=== PATIENT | female | born 1945 | race Caucasian/White ===

== ENCOUNTER 2017-05-11 10:15 | Inpatient (IN) | payer MEDICARE ==
[2018-04-26] MEDS ORDERED: Tranexamic Acid 1,000 MG in NS 0.9% 50 ML* (outpatient use) IV SCH ×2
--- OUTSIDE RECORDS SUMMARY | 2018-04-26 05:46 | XMS REPORT | Continuity of Care Document ---
:1945 External Reference #:[id number] Author Name Teresa Solis Care Team Providers Name Role Phone Pepe Rodríguez D.O. Primary Care Physician Unavailable Payers Date Identification Numbers Payment Provider Subscriber Expires: 2017 Policy Number: [id number] [employer] (O) Ana Cordova Michael PayID: [id number] [address] [address] [place] [address] Policy Number: [id number] Medicare Ana Cordova Michael PayID: [id number] [address] [place] [address] Policy Number: [id number] [facility] Ana Cordova Michael PayID: [id number] [address] [place] [address] Advance Directives Description No Information Available Problems Date Description Provider Status Onset: 12/18/2016 Iliotibial band friction syndrome Johnie Merchant M.D. Active Onset: 12/18/2016 Localized, primary osteoarthritis Johnie Merchatn M.D. Active Onset: 12/18/2016 Shoulder joint pain Johnie Merchant M.D. Active Onset: 04/21/2017 Disorder of shoulder Johnie Merchant M.D. Active Onset: 07/06/2017 Closed fracture of carpal bone Chasidy García M.D. Active Onset: 07/06/2017 Hypoxemia Chasidy García M.D. Active Onset: 07/06/2017 Dyspnea Chasidy García M.D. Active Onset: 07/06/2017 Chronic obstructive lung disease Chasidy García M.D. Active Onset: 11/12/2017 Nondisplaced longitudinal fracture of Johnie Merchant M.D. Active left patella, subsequent encounter for closed fracture with routine healing Onset: 11/12/2017 Closed fracture proximal humerus, three Johnie Merchant M.D. Active part Family History Date Family Member(s) Observation Comments General Diabetes General Cancer Father due to Natural Causes () Mother due to Natural Causes () Siblings 4 Social History Type Date Description Comments Sex Unknown Marital Status Lives With Sister Occupation Retired Tobacco Use Start: Unknown Heavy tobacco smoker (more than 10 cigarettes/day) ETOH Use Drinks 3 Alcoholic Beverages Per Day Recreational Drug Use Denies Drug Use Tobacco Use Start: Unknown Patient is a current smoker, smokes every day Smoking Status Reviewed: 04/20/18 Patient is a current smoker, smokes every day Exercise Type/Frequency Exercises rarely Allergies, Adverse Reactions, Alerts Date Description Reaction Status Severity Comments 12/18/2016 Vicodin Active 10/26/2017 Tape Active Medications Medication Date Status Form Strength Qnty SIG Indications Ordering Provider Vitamin D3 10/05/ Active Capsules 5000Unit 30caps 1 by mouth S52.551D Pepe Embanet 2017 every day x 3 F Strength months MD Gladis Clonazepam / Active Tablets 0.5mg 1 daily Unknown 0000 Zolpidem / Active Tablets 5mg take 1 tablet Unknown Tartrate 0000 by mouth at bedtime Aleve / Active Capsules 220mg 1-2 by mouth Unknown 0000 twice a day as needed (average 4/day) Stiolto / Active Aerosol 2.5-2.5mcg 1 puff daily Unknown Respimat 0000 /Act Potassium / Active Tablets 550(90K) 1 by mouth Unknown Gluconate 0000 mg twice a day Calcium 500 / Active Tablets 500-600mg- 1 by mouth Unknown + D3 0000 Unit twice every day Tums / Active Chewtabs 500mg as needed Unknown 0000 Fentanyl / Active Patches 25mcg/HR apply one Unknown 0000 72HR patch once every 3 days Prevacid / Active Capsules 30mg take [address] at bedtime Ventolin HFA / Active Aerosol 108(90Base Inhale 2 Unknown 0000 ) mcg/Act Puffs By Mouth Every 6 Hours as Needed Amoxicillin/ 07/08/ Hx Tablets 875-125mg 14tabs 1 tab every Pepe Clavulanate 2017 hours for F Potassium 09/01/ 7 days Gladis2017 Oxycodone 05/30/ Hx Tablets 5mg 30tabs 1 tab every 6 Pepe HCL 2018 - hours as F 11/09/ needed for 2017 pain Colace 05/30/ Hx Capsules 100mg 90caps 1 tab every Pepe 2018 - 12 hours as F 04/19/ needed for 2018 constipation Percocet 05/25/ Hx Tablets 5-325mg 30tabs 1 tab by Pepe 2017 - mouth every 6 F 24/ hours as 2017 needed for pain. Keflex 05/25/ Hx Capsules 500mg 21caps take 1 tab by Pepe 2017 - mouth 3 times F 11/16/ day x 7 2017 days until MD finished. Aspirin Ec 05/25/ Hx Tablets DR 325mg 30tabs take 1 tab by Pepe 2017 - mouth every F 11/16/ day x 14 2017 days. with food. Tramadol HCL 06/29/ Hx Tablets 50mg 14tabs 1 tablet Pepe 2017 - every 6 hours F 11/09/ as needed 2017 Prevacid 00/00/ Hx Capsules 30mg 1 by mouth Unknown 0000 - DR every day 2017 Flexeril 00/00/ Hx 1 po every 8 Unknown 0000 - hours prn 2017 Dexilant 00/00/ Hx Capsules 30mg 1 by mouth Unknown 0000 - DR every day 2017 Oxycodone 00/00/ Hx Tab ER 12H 10mg [place], HCL ER 0000 - Abuse-Det Pepe 11/09/ Zachary Ramon 2017 Fentanyl 00/00/ Hx Patches 12mcg/HR apply 1 patch Unknown 0000 - 72HR every 3 days 12/14/ maximum daily 2018 dose=1 patch every 3 days Vitamin D 00/00/ Hx Tablets 5000 by mouth Unknown 0000 - everyday 2018 Immunizations Description No Information Available Vital Signs Date Vital Result Comment 04/20/2018 11:14am Height 64 inches 5'4" Weight 150.00 lb BP Systolic 122 mmHg BP Diastolic 64 mmHg Respiratory Rate 20 /min Pain Level 7 BMI (Body Mass Index) 25.7 kg/m2 03/18/2018 11:25am Height 64 inches 5'4" Weight 150.00 lb Heart Rate 76 /min BP Systolic Recheck 126 mmHg BP Diastolic Recheck 76 mmHg Respiratory Rate 16 /min Body Temperature 98.0 F BMI (Body Mass Index) 25.7 kg/m2 01/14/2018 11:28am Height 64 inches 5'4" Weight 144.00 lb Heart Rate 76 /min BP Systolic Recheck 130 mmHg BP Diastolic Recheck 86 mmHg Respiratory Rate 16 /min Body Temperature 97.9 F BMI (Body Mass Index) 24.7 kg/m2 12/28/2017 12:08pm Height 64 inches 5'4" Weight 155.00 lb Heart Rate 80 /min BP Systolic Recheck 122 mmHg BP Diastolic Recheck 76 mmHg Respiratory Rate 16 /min Body Temperature 98.4 F BMI (Body Mass Index) 26.6 kg/m2 12/04/2017 9:46am Height 64 inches 5'4" Weight 145.00 lb Heart Rate 80 /min BP Systolic Recheck 122 mmHg BP Diastolic Recheck 76 mmHg Respiratory Rate 16 /min Body Temperature 98.2 F BMI (Body Mass Index) 24.9 kg/m2 11/20/2017 2:30pm Height 63 inches 5'3" Weight 143.00 lb Heart Rate 76 /min BP Systolic Recheck 122 mmHg BP Diastolic Recheck 76 mmHg Respiratory Rate 16 /min Body Temperature 98.4 F BMI (Body Mass Index) 25.3 kg/m2 11/12/2017 11:30am Height 63 inches 5'3" Weight 145.00 lb Heart Rate 88 /min BP Systolic Recheck 130 mmHg BP Diastolic Recheck 84 mmHg Respiratory Rate 20 /min Body Temperature 97.9 F BMI (Body Mass Index) 25.7 kg/m2 10/26/2017 11:37am Height 63 inches 5'3" Weight 148.00 lb Heart Rate 76 /min BP Systolic Recheck 124 mmHg BP Diastolic Recheck 82 mmHg Respiratory Rate 16 /min Body Temperature 983.0 F BMI (Body Mass Index) 26.2 kg/m2 10/05/2017 11:37am Height 63 inches 5'3" Weight 159.00 lb Heart Rate 84 /min BP Systolic Recheck 124 mmHg BP Diastolic Recheck 76 mmHg Respiratory Rate 16 /min Body Temperature 98.8 F BMI (Body Mass Index) 28.2 kg/m2 09/03/2017 1:05pm Height 63 inches 5'3" Weight 170.00 lb Heart Rate 75 /min Respiratory Rate 15 /min Pain Level 6 BMI (Body Mass Index) 30.1 kg/m2 08/17/2017 11:17am Height 63 inches 5'3" Weight 170.00 lb Heart Rate 76 /min BP Systolic Recheck 126 mmHg BP Diastolic Recheck 82 mmHg Respiratory Rate 16 /min Body Temperature 98.0 F BMI (Body Mass Index) 30.1 kg/m2 07/20/2017 11:09am Height 63 inches 5'3" Weight 170.00 lb per patient not able to stand on scale Heart Rate 91 /min BP Systolic Sitting 152 mmHg sitting, left arm, regular cuff BP Diastolic Sitting 72 mmHg sitting, left arm, regular cuff Respiratory Rate 18 /min Body Temperature 97.9 F O2 % BldC Oximetry 92 % BMI (Body Mass Index) 30.1 kg/m2 07/09/2017 1:08pm Height 63 inches 5'3" Weight 176.00 lb Heart Rate 84 /min Respiratory Rate 18 /min Body Temperature 97.3 F Pain Level 1 BMI (Body Mass Index) 31.2 kg/m2 07/01/2017 4:17pm Height 63 inches 5'3" Weight 176.75 lb w/shoes Heart Rate 106 /min BP Systolic Sitting 142 mmHg lue reg cuff BP Diastolic Sitting 62 mmHg lue reg cuff BMI (Body Mass Index) 31.3 kg/m2 Ejection Fraction >70% echo 05/22/2017 06/29/2017 9:57am Height 63 inches 5'3" Weight 170.00 lb Heart Rate 80 /min BP Systolic Recheck 128 mmHg BP Diastolic Recheck 84 mmHg Respiratory Rate 16 /min Body Temperature 97.9 F BMI (Body Mass Index) 30.1 kg/m2 05/01/2017 11:18am Height 63 inches 5'3" Weight 172.00 lb with shoes Heart Rate 106 /min BP Systolic Sitting 148 mmHg LA, reg cuff BP Diastolic Sitting 78 mmHg LA, reg cuff BMI (Body Mass Index) 30.5 kg/m2 04/21/2017 10:33am Height 63 inches 5'3" Weight 165.00 lb Heart Rate 76 /min BP Systolic Recheck 126 mmHg BP Diastolic Recheck 82 mmHg Respiratory Rate 16 /min Body Temperature 97.9 F BMI (Body Mass Index) 29.2 kg/m2 12/18/2016 10:50am Height 64 inches 5'4" Weight 160.00 lb Heart Rate 80 /min BP Systolic Recheck 130 mmHg BP Diastolic Recheck 84 mmHg Respiratory Rate 20 /min Body Temperature 98.0 F BMI (Body Mass Index) 27.5 kg/m2 Results Test Date Facility Test Result H/L Range Note Platelet Count 09/21/2017 [facility] Platelet Count 101 10^3/uL Low 150-[address] [place] [address] [phone] Mean Platelet Volume 9.5 um3 N 7.4-10.4 Laboratory 09/21/2017 [facility] Partial Thrombo 44.7 High 26.0-36.3 test finding [address] [place] [address] [phone] Inr/Protime 09/21/2017 [facility] Inr 1.52 High 0.77-1.[address] [place] [address] [phone] Laboratory 09/21/2017 [facility] Cytology Non-Supervisor Engine Assembly SEE RESULT 1 test finding [address] [place] [address] [phone] Leukemia/Lymp 09/21/2017 [facility] Path tnp mandeep Flow [address] [place] [address] 2-8 Marker [phone] Path Interpret 9-15 Marker (SEE NOTE) 2 Path Interpret > 16 Marker tnp 1 SEE RESULT BELOW Name: AAN MCCRAY : [address]: Helio Ray MD Acct: [id number] Unit: [id number] AGE: 71 Location: Re09/21/17 SEX: F Status: REG REF SPEC: [id number] ANNA: 09/21/17-1445 [facility] DR: Helio Ray MD REQ: [id number] RECD: 09/21/17 STATUS: MARI HARRIS DR: Pepe Osman MD _ ORDERED: FNA-IMG GUID BX, CY ADEQ-ADDL P/5, LEVEL 4, CYTO ADEQ-1ST P Flow cytometry has been performed at [facility], [place], [place]. The testing reveals: FINAL DIAGNOSIS: Specimen Source: Right pelvic mass ([id number]) Flow cytometry immunophenotypic analysis: Peripheral blood only. No immunophenotypically abnormal cell population. Interpretative data: Lymphocytes: 49% B-cells: 2% T-cells/NK cells: No aberrant population detected. Markers tested: CD3, CD5, CD7, CD10, CD19, CD20, CD23, CD45, kappa surface light chains, lambda surface light chains, 7-AAD. Quality Assessment: Acceptable Viability: Acceptable Viable lymphocytes (7-AAD): 100% Specimen received within validated guidelines. A Gonzalez-Giemsa stained slide prepared from the flow cytometry specimen was examined for quality purposes. Electronically signed by: Scarlett Thakur MD 09/23/17 0752 Technical component performed by: [place] [address] [employer] Supervisor: Lázaro Lanier II, MD, PhD. CONTINUED ON NEXT PAGE DEPARTMENT OF PATHOLOGY, [address] [place] [address] Del Patrick M.D. Director [facility] # [id number] RUN DATE: 09/24/17 [facility] LAB LIVE PAGE 2 Patient: ANA MCCRAY [id number] (Continued) ADDENDUM (Continued) Addendum Signed (signature on file) Scarlett Thakur MD 1626 FINAL DIAGNOSIS Pelvic lesion, right, CT guided fine needle aspiration: -- Peripheral blood only. COMMENT: A cell block was prepared in the evaluation of this specimen. Smears and cell block reveal similar findings. Slides show abundant blood with no evidence of an immunophenotypically abnormal population by flow and no cellular population by light microscopy. PELVIC - CT GUIDED FINE NEEDLE ASPIRATION CLINICAL HISTORY Right pelvic lesion. Hx of multiple myeloma-08/2017. Pathologic fracture with lytic lesion on T1. IMMEDIATE INTERPRETATION Pass 1-[address] guided fine needle aspiration x 6 passes, 9 alcohol fixed slides, needle rinse in formalin for cell block and Specimen sent to [facility] for Flow cytometry [place], [place] on 09/21/17 by [id number] at 1530. CONTINUED ON NEXT PAGE DEPARTMENT OF PATHOLOGY, [address] [place] [address] Del Patrick M.D. Director [facility] # [id number] RUN DATE: 09/24/17 [facility] LAB LIVE PAGE 3 Patient: ANA MCCRAY [id number] (Continued) GROSS DESCRIPTION (Continued) Signed by and Reported on: Scarlett Thakur MD 09/23/17 1144 END OF REPORT DEPARTMENT OF PATHOLOGY, [address] [place] [address] Del Patrick M.D. Director [facility] # [id number] 2 FINAL DIAGNOSIS: Specimen Source: Right pelvic mass ([id number]) Flow cytometry immunophenotypic analysis: Peripheral blood only. No immunophenotypically abnormal cell population. Interpretative data: Lymphocytes: 49% B-cells: 2% T-cells/NK cells: No aberrant population detected. Markers tested: CD3, CD5, CD7, CD10, CD19, CD20, CD23, CD45, kappa surface light chains, lambda surface light chains, 7-AAD. Quality Assessment: Acceptable Viability: Acceptable Viable lymphocytes (7-AAD): 100% Specimen received within validated guidelines. A Gonzalez-Giemsa stained slide prepared from the flow cytometry specimen was examined for quality purposes. Electronically signed by: Scarlett Thakur MD 09/23/17 1141 Technical component performed by: [place] [address] [employer] Supervisor: Lázaro Lanier II, MD, PhD. Procedures Date Code Description Status 01/14/2018 85092 Inject/Drain Joint/Bursa Major W/O US Completed 10/02/2017 47102 Open TX Of Patellar FX W/Internal Fixation And/Or Partial Completed Patelle 08/17/2017 66687 Short Arm Cast Application Completed 07/20/2017 02318 Short Arm Cast Application Completed 07/09/2017 39987 Short Arm Cast Application Completed 07/03/2017 52322 Open TX Distal Radial Extra-Ar Completed 07/03/2017 61613 Open TX Distal Radial Extra-Ar Completed 07/03/2017 20187 FX Ulnar Shaft Open TX W/Wo Fixation Completed 07/03/2017 72032 FX Ulnar Shaft Open TX W/Wo Fixation Completed 06/29/2017 72062 Short Arm Cast Application Completed 06/24/2017 11531 Treadmill Interp/Report Only Completed 06/24/2017 84107 Stress Test Supervsn W/Out I/R Completed 05/22/2017 56553 ECHO Transthorasic Realtime 2D W Doppler & Color Flow Hosp Completed 05/22/2017 75611 ECHO Transthorasic Realtime 2D W Doppler & Color Flow Hosp Completed 05/08/2017 30402 Holter Monitor Review (24 hr)dr review & interp only Completed 05/06/2017 32028 Diffusing Capacity Completed 05/06/2017 46332 Plethysmography Determination Lung Volumes & Per Airway Completed Resist 05/06/2017 57160 Pulmonary Function><Bronchodil Completed 05/01/2017 25155 EKG Tracing & Interpretation Completed Encounters Type Date Location Provider Dx Diagnosis Office Visit 03/18/2018 Orthopedic Johnie Merchant, M17.11 Unilateral 11:00a Services Of [employer] AT M.D. primary John osteoarthritis, right knee Office Visit 01/14/2018 Orthopedic Johnie Merchant, S82.025D Nondisp longitud 11:00a [facility] [employer] AT M.D. fx l patella, [place] subs for clos fx w routn heal S42.231D 3-part fx surg neck of r humerus, subs for fx w routn heal M17.11 Unilateral primary osteoarthritis, right knee Office Visit 12/28/2017 11:15a Orthopedic Pepe F S52.551D Oth extrartic [facility] MD Gladis fx low end r AT [place] rad, 7thD S52.691D Oth fx lower end of r ulna, subs for clos fx w routn heal Office Visit 12/04/2017 9:15a Orthopedic Johnie Merchant, S82.025D Nondisp [facility] Deysi.Moi longitud fx l AT John patella, subs for clos fx w routn heal M54.2 Cervicalgia S42.231D 3-part fx surg neck of r humerus, subs for fx w routn heal Office Visit 11/20/2017 2:15p Orthopedic Johnie Merchant, S82.025D Nondisp [facility] Tate longitud fx l AT [place] patella, subs for clos fx w routn heal M54.2 Cervicalgia S42.231D 3-part fx surg neck of r humerus, subs for fx w routn heal Office Visit 11/12/2017 11:15a Orthopedic Johnie Merchant, S82.025D Nondisp [facility] Tate longitud fx l AT John patella, subs for clos fx w routn heal M54.2 Cervicalgia S42.231D 3-part fx surg neck of r humerus, subs for fx w routn heal Office Visit 11/06/2017 7:00a Orthopedic Johnie Merchant, S42.231A 3-part [facility] Tate fracture of AT John surgical neck of right humerus, init S82.025D Nondisp longitud fx l patella, subs for clos fx w routn heal S82.025A Nondisplaced longitudinal fracture of left patella, init Office Visit 10/26/2017 11:15a Orthopedic Pepe F S52.551D Oth extrartic [facility] MD Gladis fx low end r AT [place] rad, 7thD S52.691D Oth fx lower end of r ulna, subs for clos fx w routn heal S32.601D Unsp fracture of right ischium, subs for fx w routn heal S32.511D Fx superior rim of right pubis, subs for fx w routn heal Office Visit 10/05/2017 11:15a Orthopedic Pepe Hurst S52.551D Oth extrartic [facility] MD Gladis fx low end r AT John rad, 7thD S52.691D Oth fx lower end of r ulna, subs for clos fx w routn heal Office Visit 08/17/2017 10:45a Orthopedic Pepe Hurst S52.601D Unsp fx [facility] AT MD Gladis lower end of John r ulna, subs for clos fx w routn heal S52.501D Unsp fx the lower end r rad, subs for clos fx w routn heal S52.551D Oth extrartic fx low end r rad, 7thD S52.691D Oth fx lower end of r ulna, subs for clos fx w routn heal S32.511D Fx superior rim of right pubis, subs for fx w routn heal Office Visit 07/07/2017 [facility] Chasidy García, S62.101A Fracture of 10:54a claritza Harry M.D. [facility] carpal Hospitalists bone, right wrist, init for clos fx S32.599A Oth fracture of unsp pubis, init encntr for closed fracture R09.02 Hypoxemia R06.02 Shortness of breath J44.9 Chronic obstructive pulmonary disease, unspecified Office Visit 07/06/2017 [facility] Chasidy García, S62.101A Fracture of 10:53a claritza Harry M.D. [facility] carpal Hospitalists bone, right wrist, init for clos fx S32.599A Oth fracture of unsp pubis, init encntr for closed fracture R09.02 Hypoxemia R06.02 Shortness of breath J44.9 Chronic obstructive pulmonary disease, unspecified Office Visit 07/05/2017 10:50a [facility] Lesly S62.101A Fracture of Assocclaritza, [facility] carpal Hospitalists RADIOLOGY RECEPTIONIST bone, right wrist, init for clos fx S32.599A Oth fracture of unsp pubis, init encntr for closed fracture R09.02 Hypoxemia R06.02 Shortness of breath Office Visit 07/01/2017 4:40p [facility] Qutaybeh S. R06.02 Shortness of Tate Nav[place] breath I34.0 Nonrheumatic mitral (valve) insufficiency I36.1 Nonrheumatic tricuspid (valve) insufficiency Z01.810 Encounter for preprocedural cardiovascular examination M17.11 Unilateral primary osteoarthritis, right knee Office Visit 06/29/2017 9:00a Orthopedic Pepe F S52.501A Unsp fracture [facility] MD Gladis of the lower AT [place] end of right radius, init S52.601A Unsp fracture of lower end of right ulna, init for clos fx S52.551A Oth extrartic fracture of lower end of right radius, init S52.691A Oth fracture of lower end of right ulna, init for clos fx Office Visit 05/01/2017 11:00a [facility] Pamela S. R07.9 Chest pain, Cardiology [place] unspecified R06.02 Shortness of breath F17.210 Nicotine dependence, cigarettes, uncomplicated R94.31 Abnormal electrocardiogram [ECG] [EKG] R00.0 Tachycardia, unspecified Z01.810 Encounter for preprocedural cardiovascular examination M17.11 Unilateral primary osteoarthritis, right knee Office Visit 04/21/2017 Orthopedic Johnie M17.11 Unilateral primary 10:15a Services Of Juan C Merchant M.D. osteoarthritis, AT John right knee M75.42 Impingement syndrome of left shoulder Office Visit 12/18/2016 10:00a Orthopedic Johnie Merchant M76.32 Iliotibial band [facility] Tate syndrome, left AT [place] leg M17.11 Unilateral primary osteoarthritis, right knee M25.512 Pain in left shoulder Plan of Treatment Future Appointment(s):05/25/2018 3:45 pm - Johnie Merchant M.D. at [facility] AT Tpljsxxu35/18/2019 9:15 am - BONITA Herring at [facility]AM[facility]04/26/2018 9:15 am - Johnie Merchant M.D. at [facility]05/03/2018 10:15 am - Pepe Griffith MD at [facility] AT Hlalpgov74/12/2019 - Maisha Vargas RPA-CM17.11 Unilateral primary osteoarthritis, right kneeFollow up:Follow up: 3-[address] Merchant in [place]
[2018-04-26] MEDS ORDERED: Gabapentin CAP(*) 300 MG PO ONE (06:00)
[2018-04-26] MEDS ORDERED: celeCOXIB CAP* 200 MG PO ONE (06:00)
[2018-04-26] MEDS ORDERED: Dexamethasone IV* 4 MG/ML 1 ML (4 MG) IV SLOW PU ONE (06:00)
[2018-04-26] MEDS ORDERED: Famotidine IV* 10 MG/ML 2 ML (20 mg) IV ONE (06:00)
[2018-04-26] MEDS ORDERED: Lactated Ringers 1000 ML Bag* 1,000 ML IV SCH (06:00)
[2018-04-26] MEDS ORDERED: Acetaminophen TAB* 325 MG PO ONE (06:00)
[2018-04-26] MEDS ORDERED: Dexamethasone IV* 4 MG/ML 1 ML (4 MG) ONE (06:11)
[2018-04-26] MEDS ORDERED: Famotidine IV* 10 MG/ML 2 ML (20 mg) ONE (06:12)
[2018-04-26] MEDS ORDERED: ceFAZolin 2 GM in NS PREMIX(*) 2 GM/100 ML BAG IVPB ONE (06:12)
[2018-04-26] MEDS ORDERED: Acetaminophen TAB* 325 MG ONE (06:12)
[2018-04-26] MEDS ORDERED: Buffered Lidocaine 1% SYRIN* 1 ML/SYRINGE INTRADERM ONE (06:12)
[2018-04-26] MEDS ORDERED: Gabapentin CAP(*) 300 MG ONE (06:12)
[2018-04-26] MEDS ORDERED: celeCOXIB CAP* 100 MG ONE (06:12)
[2018-04-26] MEDS: Buffered Lidocaine 1% SYRIN* 1 ML/SYRINGE INTRADERM ONE ×2 (06:36→12:06)
[2018-04-26 06:40] LABS: INR 1.14 (0.77-1.02)
[2018-04-26] MEDS ORDERED: Bupivacaine 0.5%* 50 ML VIAL ONE (06:44)
[2018-04-26] MEDS ORDERED: Lidocaine 1% MPF wEPI 200,000* 30 ML SDV ONE (06:44)
[2018-04-26] MEDS ORDERED: Ondansetron INJ* 2 MG/ML VIAL IV PRN ×2 (06:53→10:00)
[2018-04-26] MEDS ORDERED: HYDROmorphone INJ1* 1 MG/ML SYRINGE IV PRN (06:53)
[2018-04-26] MEDS ORDERED: Naloxone* 0.4 MG/ML 1 ML VIAL IV PRN (06:53)
[2018-04-26] MEDS ORDERED: DiMENhydriNATE IV* 50 MG/ML VIAL IV PUSH PRN (06:53)
[2018-04-26] MEDS ORDERED: oxyCODONE TAB* 5 MG TAB PO PRN (06:53)
[2018-04-26] MEDS ORDERED: Acetaminophen IV 1GM/100ML * 1,000 MG/100 ML VIAL IVPB ONE (06:53)
[2018-04-26] MEDS ORDERED: Ketorolac INJ* 30 MG/ML 1 ML VIAL IV PRN (06:53)
[2018-04-26] MEDS ORDERED: fentaNYL* 50 MCG/ML 2 ML VIAL (100 MCG VIAL) IV PRN (06:53)
[2018-04-26] MEDS ORDERED: Midazolam* 1 MG/ML 2 ML VIAL (2 MG) ONE (06:57)
[2018-04-26] MEDS ORDERED: fentaNYL* 50 MCG/ML 2 ML VIAL (100 MCG VIAL) ONE (06:57)
[2018-04-26] MEDS ORDERED: ROPIVACAINE 5 MG/ML 30 ML BTL (0.5%) ONE (07:23)
[2018-04-26] MEDS ORDERED: Lidocaine 1%* 5 ML VIAL ONE (07:23)
[2018-04-26] MEDS ORDERED: Bupivacaine 0.5% W/EPI SDV* 30 ML VIAL ONE (07:35)
[2018-04-26] MEDS ORDERED: KETAMINE HCL* 50 MG/ML 10 ML VIAL ONE (08:01)
[2018-04-26] MEDS ORDERED: Propofol* 10 MG/ML 20 ML BTL ONE (08:09)
[2018-04-26] MEDS ORDERED: Propofol* 500 MG/50 ML BTL ONE (08:09)
[2018-04-26] MEDS ORDERED: Cyclobenzaprine TAB* 10 MG PO PRN (10:00)
[2018-04-26] MEDS ORDERED: diPHENhydraMINE PO* 25 MG PO PRN (10:00)
[2018-04-26] MEDS ORDERED: Morphine 4 MG/ML VIAL (1 ml) 4 MG/ML VIAL IV PRN (10:00)
[2018-04-26] MEDS ORDERED: Magnesium Hydroxide LIQ* 30 ML UDC PO PRN (10:00)
[2018-04-26] MEDS ORDERED: diPHENhydraMINE IV* 50 MG/ML 1 ml VIAL (BENADRYL) IV PRN (10:00)
[2018-04-26] MEDS ORDERED: Ondansetron ODT TAB* 4 MG PO PRN (10:00)
[2018-04-26] MEDS ORDERED: Tiotropium Brom/Olodaterol(NF) 4 GM 60 PUFF MDI INH PRN (10:04)
[2018-04-26] MEDS ORDERED: Albuterol HFA INHALER* 8 gm MDI INH PRN (10:04)
--- NOTE | 2018-04-26 11:12 | OP ---
DATE OF OPERATION: 04/26/18 - ROOM #339 DATE OF : 47 SURGEON: Johnie Merchant MD. GUEST HOUSE MANAGER: BONITA Palma. ANESTHESIA: Regional/spinal/sedation. PRE-OP DIAGNOSIS: Osteoarthritis, right knee. POST-OP DIAGNOSIS: Osteoarthritis, right knee. OPERATIVE PROCEDURE: Right total knee arthroplasty. ESTIMATED BLOOD LOSS: Less than 50 cc. COMPLICATIONS: None. HARDWARE: Lenore Persona #6 femur, E tibia, 10-mm polyethylene spacer, 35-mm all polyethylene patellar button. SUMMARY: Ms. Cruz is a 72-year-old female who has had long history of right knee pain, she had undergone the arthroscopy elsewhere, which had worked well for a period of time. When she presented to the office several years ago, she had an MRI which showed complete loss of her lateral cartilage and on exam she had a very specific valgus deformity. She did respond to conservative treatment where she had done all right, but recently re-presented complaining of increasing right knee pain. I discussed with her that a total knee arthroplasty should work well to decrease her pain and improve her function. Risk of surgery such as infection, scar formation, stiffness, DVT, pulmonary embolism, hardware failure, and continued pain were some of the risks discussed. She had been declared medically optimized and wished to proceed. DESCRIPTION OF PROCEDURE: The patient had a block placed in the holding area and was brought back to the OR. Spinal anesthesia was introduced. Herrmann catheter was placed. Tourniquet was placed over the proximal right thigh and was used during the case. Total tourniquet time would be 65 minutes. Right knee was prepped and then draped. Esmarch was used to exsanguinate the leg and the tourniquet was raised. Midline incision was made centered about the patella and was carried down to the medial sided tibial tubercle. Incision was carried down through the skin and subcutaneous fat. Small bleeders encountered were ligated using electrocautery. Sharp parapatellar arthrotomy was made and quite a bit of clear yellowish joint fluid was encountered. Soft tissues were sharply elevated from the medial side of the tibia and fat pad was sharply excised. Patella was measured and she measured approximately 22 to 23 mm in thickness. It could be seen how her bone spurs were almost glued on to the medial side of the patella. Saw was used to take an 11-mm cut and a 12 to 13 mm of patella remained. Patella was then easily subluxated laterally and the knee flexed up. Nice exposure to the distal femur was obtained. Her wear could easily be seen. Step drill was used to open up the femoral canal and the intramedullary guide was placed. This was adjusted until it was parallel with the epicondyles and then the guide was pinned into place. Distal femoral cutting guide was then pinned into place and the intramedullary guide was removed. Distal femoral cut was taken and this had been set at 2 mm width at 3 degrees. The cut, however, barely took anything from the lateral side and a second cut of 2 additional millimeters was taken. This now came down into the notch and appeared to be a better cut. The femur was sized and she sized nicely for a 6. Holes were drilled, but with the superior drill hole I did not come out on the top side of the cortex and this moved up 2 mm. This gave nice alignment. The cutting block was placed and the anteroposterior femoral cuts were made and chamfer cuts were also made. Attention was turned to the tibia. Step drill was used to open up the tibial canal and the intramedullary guide was placed. Outrigger was assembled and adjusted until it appeared it will take 2 mm from the worn lateral side. Drop carlos was placed and alignment appeared quite good. Cutting guide was pinned into place and the proximal tibial cut was taken. Her bone was fairly soft especially on the medial side. Spacer block was placed and her alignment appeared perfect and she locked out fully and flexed nicely. Pins were removed and tibia was sized. She sat nicely for an E and this was then pinned into place. Proximal tibia was drilled and then punched but there was no resistance with either, so I had asked for the stem extension for the tibia. Attention was returned to the femur. Box cut was finished using the box cut finishing guide and stud holes were drilled. Trial instrumentation was placed and even without the patellar trial, patellar tracking was good. She came out nicely until full extension and flexed quite nicely. Patella was sized and a 35 sat very nicely. Holes were drilled and trial was snapped into place. Patellar tracking was still good. Trial instrumentation was removed and the knee was copiously pulse lavaged. Cement was being prepared. Tibia, followed by femur, and patella were all cemented into place. Excess cement was removed and the cement was allowed to harden. Once the cement had hardened, she was again trialed with a 10 and she had wonderful motion and stability. Medial and posterolateral aspects of the knee were injected with 10 cc of 0.5% Marcaine with epinephrine and the lateral gutter was also injected with 10 cc of 0.5% Marcaine with epinephrine. Knee was again copiously pulse lavaged and 10 polyethylene was then snapped into place. Knee was again pulse lavaged and parapatellar arthrotomy was repaired using interrupted #1 Vicryl sutures. Tourniquet was let down and no significant bleeding was encountered. Subcutaneous tissue was reapproximated with 2-0 Vicryl. Skin was closed using mauricio. Sterile dressing and a Cryo/Cuff were applied in the OR. The patient was then awakened and stable on transfer to the recovery room. [id number]/CPS #: [id number] THAIS
[2018-04-26] MEDS: D5W 1/2 NS 1000 ML BAG* 1,000 ML IV SCH ×2 (11:17→21:25)
[2018-04-26] MEDS: traMADol TAB* 50 MG PO SCH ×3 (12:31→23:53)
[2018-04-26] MEDS: ceFAZolin 1 GM in Dextrose (*) 1 GM/50 ML BAG IVPB SCH ×2 (15:46→23:51)
[2018-04-26] MEDS ORDERED: Warfarin TAB(*) 10 MG PO ONE (17:00)
[2018-04-26] MEDS: Pantoprazole TAB * 40 MG TAB PO SCH (21:26)
[2018-04-26] MEDS: Docusate CAP* 100 MG PO SCH (21:26)
[2018-04-26] MEDS: Magnesium Hydroxide LIQ* 30 ML UDC PO SCH (21:27)
[2018-04-26] MEDS: oxyCODONE TAB* 5 MG TAB PO PRN (21:54)
[2018-04-26] MEDS: Cholecalciferol CAP/TAB(NF) ** ENTER STRENGTH IN LABEL DIRECTIONS PO SCH (21:55)
[2018-04-26] MEDS: Zolpidem TAB* 5 MG PO SCH (23:55)
[2018-04-27] MEDS: oxyCODONE TAB* 5 MG TAB PO PRN ×4 (01:48→21:21)
[2018-04-27 05:22] LABS: Hematocrit 31 % (33-41); Hemoglobin 10.4 g/dL (12.0-16.0); Platelet Count 78 10^3/uL (150-450)
[2018-04-27 05:24] LABS: INR 1.45 (0.77-1.02)
[2018-04-27 05:32] LABS: BUN/Creatinine Ratio 30.2 (8-20); Calcium 8.3 mg/dL (8.6-10.3); EGFR African American 175.1 (>60); EGFR Non-African American 144.7 (>60); Potassium 4.1 mmol/L (3.5-5.0)
[2018-04-27] MEDS: traMADol TAB* 50 MG PO SCH ×4 (06:05→23:40)
[2018-04-27] MEDS: ceFAZolin 1 GM in Dextrose (*) 1 GM/50 ML BAG IVPB SCH (07:53)
[2018-04-27] MEDS: Magnesium Hydroxide LIQ* 30 ML UDC PO SCH ×2 (08:49→21:21)
[2018-04-27] MEDS: Docusate CAP* 100 MG PO SCH ×2 (08:50→21:21)
[2018-04-27] MEDS: DULoxetine DR CAP* 30 MG CAP.DR PO SCH (08:50)
[2018-04-27] MEDS: Cholecalciferol CAP/TAB(NF) ** ENTER STRENGTH IN LABEL DIRECTIONS PO SCH ×2 (08:50→21:25)
[2018-04-27] MEDS: Heparin VIAL(*) 5000 UNITS/ML VIAL (FIVE THOUSAND) SUBCUT SCH ×3 (08:50→21:23)
[2018-04-27] MEDS ORDERED: clonazePAM TAB(*) 0.5 MG PO SCH (09:00)
--- NOTE | 2018-04-27 09:33 | PN ---
Progress Note - Progress Note Date of Service: 04/27/18 SOAP: Subjective: []Patient seen and examined OOB in chair, she is feeling well with well controlled knee pain. Denies CP, SOB, dizziness, nausea. Objective: []General: Well appearing, NAD RLE: Right knee dressing CDI with cryo cuff in use, thigh is soft, DF/PF intact , DP2+, sensation intact to light touch distally. Calves supple and nontender without erythema, edema or palpable cords Assessment: []POD [address] Merchant 04/26 Plan: []WBAT PT/OT Heparin bridge to coumadin. Coumadin 6 mg today Encourage IS use. Has hx COPD Vital Signs Temp 98.0 F 04/27/18 07:22 Pulse 82 04/27/18 07:22 Resp 20 04/27/18 08:50 BP 106/51 04/27/18 07:22 Pulse Ox 92 04/27/18 08:00 Intake & Output 04/26/18 04/27/18 04/27/18 18:59 06:59 18:59 Intake Total 1400 2140 1045 Output Total 1500 600 100 Balance -100 1540 945 Intake: IV Fluids 1400 1040 1045 ABX - CEFAZOLIN 55 55 NS 100ML, Cefazolin 2G 100 TRANEXAMIC ACID 1GM 50ML 50 d5 1/2NS 985 990 lr 1250 Oral 1100 Output: Urine 100 Herrmann 1250 600 Estimated Blood Loss 250 Other: Estimated Void Medium # Bowel Movements 0 # Voids 1 Laboratory Last Values Hgb 10.4 g/dL (12.0-16.0) L 04/27/18 04:50 Hct 31 % (33-41) L 04/27/18 04:50 Plt Count 78 10^3/uL (150-450) L 04/27/18 04:50 MPV 9.0 fL (7.4-10.4) 04/27/18 04:50 INR (Anticoag Therapy) 1.45 (0.77-1.02) H 04/27/18 04:50 Sodium 137 mmol/L (135-145) 04/27/18 04:50 Potassium 4.1 mmol/L (3.5-5.0) 04/27/18 04:50 Chloride 107 mmol/L (101-111) 04/27/18 04:50 Carbon Dioxide 27 mmol/L (22-32) 04/27/18 04:50 Anion Gap 3 mmol/L (2-11) 04/27/18 04:50 BUN 13 mg/dL (6-24) 04/27/18 04:50 Creatinine 0.43 mg/dL (0.51-0.95) L 04/27/18 04:50 Est GFR ( Amer) 175.1 (>60) 04/27/18 04:50 Est GFR (Non-Af Amer) 144.7 (>60) 04/27/18 04:50 BUN/Creatinine Ratio 30.2 (8-20) H 04/27/18 04:50 Glucose 148 mg/dL (70-100) H 04/27/18 04:50 Calcium 8.3 mg/dL (8.6-10.3) L 04/27/18 04:50
[2018-04-27] MEDS ORDERED: Warfarin TAB(*) 6 MG PO ONE (17:00)
[2018-04-27] MEDS: Pantoprazole TAB * 40 MG TAB PO SCH (21:20)
[2018-04-27] MEDS: Zolpidem TAB* 5 MG PO SCH (23:40)
[2018-04-28] MEDS: Heparin VIAL(*) 5000 UNITS/ML VIAL (FIVE THOUSAND) SUBCUT SCH (05:28)
[2018-04-28] MEDS: traMADol TAB* 50 MG PO SCH ×3 (05:29→17:50)
[2018-04-28 06:37] LABS: Hematocrit 30 % (33-41); Mean Platelet Volume 8.9 fL (7.4-10.4); Platelet Count 77 10^3/uL (150-450)
[2018-04-28 06:48] LABS: INR 4.01 (0.77-1.02)
[2018-04-28] MEDS: Cholecalciferol CAP/TAB(NF) ** ENTER STRENGTH IN LABEL DIRECTIONS PO SCH (08:22)
[2018-04-28] MEDS: Magnesium Hydroxide LIQ* 30 ML UDC PO SCH ×2 (08:24→21:07)
[2018-04-28] MEDS: Docusate CAP* 100 MG PO SCH ×2 (08:24→21:07)
[2018-04-28] MEDS: DULoxetine DR CAP* 30 MG CAP.DR PO SCH (08:24)
[2018-04-28] MEDS ORDERED: oxyCODONE TAB* 5 MG TAB PO PRN (09:52)
--- NOTE | 2018-04-28 09:59 | PN ---
Progress Note - Progress Note Date of Service: 04/28/18 SOAP: Subjective: []Pt seen at bedside. She reports well controlled knee pain. Denies CP, SOB, dizziness or nausea. She is requiring O2 as she desaturates to 89-91 on room air. Patients hands are shakey, reported baseline for the past 2 months. Objective: []General: NAD, a&ox3. Though alert and oriented she requires redirection to keep on track with conversation. Tremulous which she reports as baseline. RLE: Right knee dressing changed, incision CDI with cryo cuff in use, thigh is soft, DF/PF intact, DP2+, sensation intact to light touch distally. Calves supple and nontender without erythema, edema or palpable cords Assessment: []POD [address] Merchant 04/26 Plan: []WBAT PT/OT Stop heparin, hold coumadin today for INR of 4. Repeat INR tomorrow Encourage IS use. CXR ordered. Has hx COPD Trial Off O2 as able reveled O2 sat 96% on room air Concern for hepatic encephalopathy, consult hospitalist service and started lactulose Vital Signs Temp 98.2 F 04/28/18 07:20 Pulse 96 04/28/18 08:20 Resp 20 04/28/18 08:00 BP 114/65 04/28/18 07:20 Pulse Ox 89 04/28/18 08:20 Intake & Output 04/27/18 04/28/18 04/28/18 18:59 06:59 18:59 Intake Total 1565 1440 Output Total 350 225 Balance 1215 1215 Intake: IV Fluids 1045 ABX - CEFAZOLIN 55 d5 1/2NS 990 Oral 520 1440 Output: Urine 350 225 Other: Estimated Void Medium Medium # Voids 1 1 Laboratory Last Values Hgb 10.0 g/dL (12.0-16.0) L 04/28/18 06:07 Hct 30 % (33-41) L 04/28/18 06:07 Plt Count 77 10^3/uL (150-450) L 04/28/18 06:07 MPV 8.9 fL (7.4-10.4) 04/28/18 06:07 INR (Anticoag Therapy) 4.01 (0.77-1.02) H 04/28/18 06:07 Sodium 137 mmol/L (135-145) 04/27/18 04:50 Potassium 4.1 mmol/L (3.5-5.0) 04/27/18 04:50 Chloride 107 mmol/L (101-111) 04/27/18 04:50 Carbon Dioxide 27 mmol/L (22-32) 04/27/18 04:50 Anion Gap 3 mmol/L (2-11) 04/27/18 04:50 BUN 13 mg/dL (6-24) 04/27/18 04:50 Creatinine 0.43 mg/dL (0.51-0.95) L 04/27/18 04:50 Est GFR ( Amer) 175.1 (>60) 04/27/18 04:50 Est GFR (Non-Af Amer) 144.7 (>60) 04/27/18 04:50 BUN/Creatinine Ratio 30.2 (8-20) H 04/27/18 04:50 Glucose 148 mg/dL (70-100) H 04/27/18 04:50 Calcium 8.3 mg/dL (8.6-10.3) L 04/27/18 04:50
[2018-04-28 11:19] LABS: Calcium 8.6 mg/dL (8.6-10.3); Magnesium 1.7 mg/dL (1.9-2.7); Potassium 4.5 mmol/L (3.5-5.0)
[2018-04-28 11:25] LABS: EGFR African American 190.4 (>60); EGFR Non-African American 157.3 (>60)
[2018-04-28 14:52] LABS: Globulin 2.9 g/dL (2-4); Indirect Bilirubin 0.7 mg/dL (0.3-1.0); Total Protein 5.9 g/dL (6.4-8.9)
--- NOTE | 2018-04-28 16:29 | CONSULT ---
Subjective Date of Service: 04/28/18 Interval History: Ana Cruz is a 72 yo female with significant PMHx COPD, alcoholic cirrhosis , and osteoarthritis. She failed conservative treatment of severe osteoarthritis of her right knee and elected to have total knee arthroplasty. Patient was noted to have altered mental status and hospital medicine was consulted for co-management. At time of visit, patient reports right knee pain but is otherwise without complaints. Reports last BM was 3 days ago. Denies dyspnea, chest pain, visual changes, headache, and abdominal pain. Family History: Findings - Father () - COPD. Mother () - lung CA. 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 Currently smokes 1 ppd and has been smoking approx 50 years. Reports she stopped drinking alcohol 10 months ago, but prior to that was drinking 1 L rum a day. Denies illicit drug use. 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, oral herpes Review of Systems - Measurements Intake and Output: Intake and Output Last 24 Hours 04/26/18 04/27/18 04/28/18 04/29/18 06:59 06:59 06:59 06:59 Intake Total 3540 3005 970 Output Total 2100 575 850 Balance 1440 2430 120 Weight 154 lb Intake: IV Fluids 2440 1045 ABX - CEFAZOLIN 55 55 NS 100ML, Cefazolin 2G 100 TRANEXAMIC ACID 1GM 50ML 50 d5 1/2NS 985 990 lr 1250 Oral 1100 1960 970 Output: Urine 575 850 Herrmann 1850 Estimated Blood Loss 250 Other: Estimated Void Medium # Bowel Movements 0 # Voids 1 - Review of Systems Constitutional Symptoms: Negative: Weight Gain, Weight Loss, Weakness, Fatigue, Fever, Night Sweats, Unexplained Falls, Other Dermatology: Positive: Normal HEENT: Positive: Normal Eyes: Positive: Normal Thyroid: Positive: Normal Pulmonary: Positive: COPD Negative: Cough, Respiratory Distress, Shortness of Breath, Home Oxygen Cardiology: Negative: Chest Pain, Shortness of Breath, Palpitations, Orthopnoea Gastroenterology: Negative: Abdominal Pain, Nausea, Vomiting, Diarrhea Genital - Urinary: Positive: Normal Genitourinay - Female: Positive: Menopause Musculoskeletal: Positive: Joint Pain Endocrinology: Positive: Normal Hematologic/Lymphatic: Negative: Easy Brusing Neurology: Negative: Headache, Change in Vision, Dizziness, Numbness\Paresthesiae, Hx of Stroke\TIA Psychiatry: Positive: Anxiety Allergic/Immunologic: Negative: Swollen Glands LymphNodes Objective Active Medications: Albuterol (Ventolin Hfa Inhaler*) 2 puff INH Q6H PRN PRN Reason: SHORTNESS OF BREATH Last Admin: 04/28/18 07:31 Dose: 2 puff Clonazepam (Klonopin Tab(*)) 0.5 mg PO DAILY@2100 [facility] Cyclobenzaprine HCl (Flexeril Tab*) 10 mg PO TID PRN PRN Reason: SPASMS Last Admin: 04/27/18 01:47 Dose: 10 mg Diphenhydramine HCl (Benadryl Iv*) 25 mg IV Q6H PRN PRN Reason: itching Diphenhydramine HCl (Benadryl Po*) 25 mg PO Q6H PRN PRN Reason: itching Docusate Sodium (Colace Cap*) 100 mg PO BID [facility] Last Admin: 04/28/18 08:24 Dose: 100 mg Duloxetine HCl (Cymbalta Cap*) 30 mg PO QAM [facility] Last Admin: 04/28/18 08:24 Dose: 30 mg Dextrose/Sodium Chloride (D5w 1/2 Ns 1000 Ml Bag*) 1,000 mls @ 100 mls/hr IV PER RATE [facility] Last Admin: 04/26/18 21:25 Dose: 100 mls/hr Lactulose (Lactulose*) 30 ml PO TID [facility] Last Admin: 04/28/18 15:19 Dose: 30 ml Magnesium Hydroxide (Milk Of Magnesia Liq*) 30 ml PO BID [facility] Last Admin: 04/28/18 08:24 Dose: 30 ml Magnesium Hydroxide (Milk Of Magnesia Liq*) 30 ml PO Q6H PRN PRN Reason: constipation Morphine Sulfate (Morphine 4 Mg/Ml Vial (1 Ml)) 2 mg IV Q2H PRN PRN Reason: PAIN - BREAKTHROUGH Ondansetron HCl (Zofran Inj*) 4 mg IV Q6H PRN PRN Reason: nausea Ondansetron HCl (Zofran Odt Tab*) 4 mg PO Q6H PRN PRN Reason: NAUSEA Oxycodone HCl (Roxycodone Tab*) 5 mg PO Q4H PRN PRN Reason: PAIN - SEVERE Pantoprazole Sodium (Protonix Tab*) 40 mg PO BEDTIME [facility] Last Admin: 04/27/18 21:20 Dose: 40 mg Pharmacy Profile Note (Coumadin Daily Reminder*) 0 note FOLLOW UP 1700 [facility] Last Admin: 04/28/18 15:42 Dose: Not Given Tiotropium [place]/Olodaterol (Stiolto Respimat Inh Goldsmith (60 Puff)(Nf)) 1 puff INH BID PRN PRN Reason: SHORTNESS OF BREATH Tramadol HCl (Ultram*) 50 mg PO Q6H [facility] Last Admin: 04/28/18 11:55 Dose: 50 mg Zolpidem Tartrate (Ambien Tab*) 5 mg PO BEDTIME [facility] Last Admin: 04/27/18 23:40 Dose: 5 mg Vital Signs - 8 hr 04/28/18 04/28/18 04/28/18 10:02 11:26 11:55 Temperature 98.3 F Pulse Rate 95 Respiratory 20 17 20 Rate Blood Pressure 117/45 (mmHg) O2 Sat by Pulse 97 Oximetry 04/28/18 04/28/18 04/28/18 14:11 14:31 15:19 Temperature Pulse Rate 96 Respiratory 18 Rate Blood Pressure (mmHg) O2 Sat by Pulse 96 96 Oximetry 04/28/18 16:00 Temperature Pulse Rate Respiratory Rate Blood Pressure (mmHg) O2 Sat by Pulse 96 Oximetry Oxygen Devices in Use Now: None Appearance: elderly appearing woman, laying in hospital bed appearing in NAD Eyes: No Scleral Icterus, PERRLA Ears/Nose/Mouth/Throat: Mucous Membranes Moist Neck: NL Appearance and Movements; NL JVP Respiratory: Symmetrical Chest Expansion and Respiratory Effort, - - audible wheezing with respirations; inspiratory and end-expiratory wheezes throughout on auscultation; no rhales Cardiovascular: NL Sounds; No Murmurs; No JVD, RRR Abdominal: NL Sounds; No Tenderness; No Distention, No Hepatosplenomegaly Extremities: No Edema, No Clubbing, Cyanosis, - - neg calf tenderness; right knee in jason wraps and brace Skin: No Rash or Ulcers, - - without jaundice Neurological: Alert and Oriented x 3, NL Muscle Strength and Tone, - - no asterixis or clonus Result Diagrams: 04/28/18 06:07 04/28/18 06:06 Assessment/Plan - Billing Plan By Medical Problem: 72 yo female with significant PMHx alcoholic cirrhosis, COPD, and osteoarthritis presents for elective right total knee arthroplasty with Dr. Merchant on 04/26/18. Patient was found to have altered mental status and hospital medicine was consulted for co-management. Chronic conditions 1. COPD: Patient is significantly wheezy today. Recommend duonebs q4hrs prn wheezing. Continue home stiolto respimat and ventolin inhalers. ABG today wnl. 2. Alcoholic cirrhosis: Patient is neurologically and psychologically intact at time of visit. A&Ox4. Abdomen exam is benign. LFTs consistent with alcoholic liver disease. Ammonia 60, though on prior hospitalizations patient has had ammonia of 80. Lactulose initiated. Recommend holding ambien. 3. Anxiety: patient takes clonazepam daily at home. 4. Pulmonary mass: patient is followed with yearly imaging in outpatient 5. Oral herpes: no active outbreak, no home medications VTE PPX: per ortho surgery Diet: per ortho surgery Code Status: DNR Admission Status and Rationale: dispo per ortho surgery Thank you for allowing us to participate in this patient's care. We will follow along during this admission.
[2018-04-28] MEDS ORDERED: Albuterol/Ipratropium NEB.SOL* Albuterol 2.5 MG/Ipratropium 0.5 MG 3 ML INH PRN (16:41)
[2018-04-28] MEDS ORDERED: clonazePAM TAB(*) 0.5 MG PO SCH (21:00)
[2018-04-28] MEDS: Pantoprazole TAB * 40 MG TAB PO SCH (21:05)
[2018-04-29] MEDS: traMADol TAB* 50 MG PO SCH ×2 (00:09→05:21)
[2018-04-29 06:01] LABS: Hematocrit 30 % (33-41); Hemoglobin 9.9 g/dL (12.0-16.0); Mean Platelet Volume 8.8 fL (7.4-10.4); Platelet Count 75 10^3/uL (150-450)
[2018-04-29] MEDS ORDERED: traMADol TAB* 50 MG PO PRN (08:12)
--- NOTE | 2018-04-29 08:41 | PN ---
Progress Note - Progress Note Date of Service: 04/29/18 SOAP: Subjective: []Patient seen at bedside. She is feeling well this morning, she reports significant bowel movement and less confusion, less tremor. Denies any known bleeding, has some bruising of the operative leg but dressing has been clean and dry. Denies any bloody or black stool. Denies CP, SOB, dizziness or nausea. Objective: [] General: NAD, a&ox3. Patient carries on appropriate conversation without becoming confused or side tracked this morning. Has spilled her drink but is not tremulous sitting at rest RLE: Right knee dressing changed, incision CDI without bleeding, cryo cuff in use, thigh is soft, anterior snell with some mild ecchymosis, no induration or fluctuance, DF/PF intact, DP2+, sensation intact to light touch distally. Calves supple and nontender without erythema, edema or palpable cords Assessment: []POD 3 s/p RTK Dr Merchant 04/26 Plan: []WBAT PT/OT no need to hold Continue to hold coumadin today for INR of 7. No known bleeding, no significant drop in H&H. Hospitalist following for alcoholic cirrhosis / hepatic encephalopathy. Improved mentation today. Will continue lactulose 15 mg BID with goal of 3-4 stools per day Anticipate DC to PMRU today. Watch for bleeding. Monitor INR, mental status, O2 sat Vital Signs Temp 99.0 F 04/29/18 03:17 Pulse 94 04/29/18 04:18 Resp 20 04/29/18 07:42 BP 131/60 04/29/18 03:17 Pulse Ox 94 04/29/18 04:18 Intake & Output 04/28/18 04/29/18 04/29/18 18:59 06:59 18:59 Intake Total 970 1200 240 Output Total 850 400 Balance 120 800 240 Intake: Oral 970 1200 240 Output: Urine 850 400 Other: Estimated Void Large # Bowel Movements 1 0 Estimated Stool Amount Large Large # Voids 2 Laboratory Last Values Hgb 9.9 g/dL (12.0-16.0) L 04/29/18 05:24 Hct 30 % (33-41) L 04/29/18 05:24 Plt Count 75 10^3/uL (150-450) L 04/29/18 05:24 MPV 8.8 fL (7.4-10.4) 04/29/18 05:24 INR (Anticoag Therapy) 7.00 (0.77-1.02) H* 04/29/18 05:24 ABG pH 7.44 (7.35-7.45) 04/28/18 14:32 ABG pCO2 42 mmHg (35-45) 04/28/18 14:32 ABG pO2 80 mmHg (80-100) 04/28/18 14:32 ABG HCO3 27.9 mmol/L (19-31) 04/28/18 14:32 ABG O2 Saturation 98.5 % (94.0-98.0) H 04/28/18 14:32 ABG Base Excess 3.9 mmol/L (-2.0-2.0) H 04/28/18 14:32 Sodium 140 mmol/L (135-145) 04/28/18 06:06 Potassium 4.5 mmol/L (3.5-5.0) 04/28/18 06:06 Chloride 107 mmol/L (101-111) 04/28/18 06:06 Carbon Dioxide 31 mmol/L (22-32) 04/28/18 06:06 Anion Gap 2 mmol/L (2-11) 04/28/18 06:06 BUN 16 mg/dL (6-24) 04/28/18 06:06 Creatinine 0.40 mg/dL (0.51-0.95) L 04/28/18 06:06 Est GFR ( Amer) 190.4 (>60) 04/28/18 06:06 Est GFR (Non-Af Amer) 157.3 (>60) 04/28/18 06:06 BUN/Creatinine Ratio 40.0 (8-20) H 04/28/18 06:06 Glucose 117 mg/dL (70-100) H 04/28/18 06:06 Calcium 8.6 mg/dL (8.6-10.3) 04/28/18 06:06 Magnesium 1.7 mg/dL (1.9-2.7) L 04/28/18 06:06 Total Bilirubin 1.00 mg/dL (0.2-1.0) 04/28/18 14:23 Direct Bilirubin 0.30 mg/dL (0.03-0.18) H 04/28/18 14:23 Indirect Bilirubin 0.7 mg/dL (0.3-1.0) 04/28/18 14:23 AST 40 U/L (13-39) H 04/28/18 14:23 ALT 18 U/L (7-52) 04/28/18 14:23 Alkaline Phosphatase 130 U/L (34-104) H 04/28/18 14:23 Ammonia 60 mcmol/L (16-53) H 04/28/18 14:23 Total Protein 5.9 g/dL (6.4-8.9) L 04/28/18 14:23 Albumin 3.0 g/dL (3.2-5.2) L 04/28/18 14:23 Globulin 2.9 g/dL (2-4) 04/28/18 14:23 Albumin/Globulin Ratio 1.0 (1-3) 04/28/18 14:23
[2018-04-29] MEDS: DULoxetine DR CAP* 30 MG CAP.DR PO SCH (08:45)
[2018-04-29] MEDS: Magnesium Hydroxide LIQ* 30 ML UDC PO SCH (08:47)
[2018-04-29] MEDS: Docusate CAP* 100 MG PO SCH (08:47)
--- NOTE | 2018-04-29 10:57 | PN ---
Subjective Date of Service: 04/29/18 Interval History: Pt is feeling ok today. She does agree she was more confused yesterday but thinks she is clearer today. She states she had explosive diarrhea yesterday after the lactulose. She states her pain in the R knee is not well controlled. Objective Active Medications: Albuterol (Ventolin Hfa Inhaler*) 2 puff INH Q6H PRN PRN Reason: SHORTNESS OF BREATH Last Admin: 04/28/18 07:31 Dose: 2 puff Albuterol/Ipratropium (Duoneb (Albuterol 2.5 Mg/Ipratropium 0.5 Mg)) 1 neb INH Q4H PRN PRN Reason: SOB/WHEEZING Clonazepam (Klonopin Tab(*)) 0.5 mg PO DAILY@2100 [facility], [facility] Last Admin: 04/28/18 21:05 Dose: 0.5 mg Cyclobenzaprine HCl (Flexeril Tab*) 10 mg PO TID PRN PRN Reason: SPASMS Last Admin: 04/27/18 01:47 Dose: 10 mg Diphenhydramine HCl (Benadryl Iv*) 25 mg IV Q6H PRN PRN Reason: itching Diphenhydramine HCl (Benadryl Po*) 25 mg PO Q6H PRN PRN Reason: itching Docusate Sodium (Colace Cap*) 100 mg PO BID FOR[facility]LY [facility], [facility] Last Admin: 04/29/18 08:47 Dose: Not Given Duloxetine HCl (Cymbalta Cap*) 30 mg PO QAM FOR[facility] Last Admin: 04/29/18 08:45 Dose: 30 mg Magnesium Sulfate (Magnesium Sulfate 2 Gm Iv*) 2 gm in 50 mls @ 50 mls/hr IVPB ONCE ONE Stop: 04/29/18 11:59 Lactulose (Lactulose*) 15 ml PO BID [facility], [facility] Magnesium Hydroxide (Milk Of Magnesia Liq*) 30 ml PO BID FOR[facility] Last Admin: 04/29/18 08:47 Dose: Not Given Magnesium Hydroxide (Milk Of Magnesia Liq*) 30 ml PO Q6H PRN PRN Reason: constipation Morphine Sulfate (Morphine 4 Mg/Ml Vial (1 Ml)) 2 mg IV Q2H PRN PRN Reason: PAIN - BREAKTHROUGH Ondansetron HCl (Zofran Inj*) 4 mg IV Q6H PRN PRN Reason: nausea Ondansetron HCl (Zofran Odt Tab*) 4 mg PO Q6H PRN PRN Reason: NAUSEA Pantoprazole Sodium (Protonix Tab*) 40 mg PO BEDTIME [facility] Last Admin: 04/28/18 21:05 Dose: 40 mg Pharmacy Profile Note (Coumadin Daily Reminder*) 0 note FOLLOW UP 1700 FORMERLY [facility] Last Admin: 04/28/18 15:42 Dose: Not Given Tiotropium [place]/Olodaterol (Stiolto Respimat Inh [place] (60 Puff)(Nf)) 1 puff INH BID PRN PRN Reason: SHORTNESS OF BREATH Tramadol HCl (Ultram*) 50 mg PO Q6H PRN PRN Reason: PAIN - SEVERE Vital Signs - 8 hr 04/29/18 04/29/18 04/29/18 03:17 04:18 05:21 Temperature 99.0 F Pulse Rate 93 94 Respiratory 20 16 16 Rate Blood Pressure 131/60 (mmHg) O2 Sat by Pulse 94 94 Oximetry 04/29/18 04/29/18 04/29/18 07:41 07:42 08:00 Temperature 99.0 F Pulse Rate 100 Respiratory 18 20 20 Rate Blood Pressure 133/55 (mmHg) O2 Sat by Pulse 93 93 Oximetry Oxygen Devices in Use Now: None Appearance: Elderly female lying flat on her back, NAD Eyes: No Scleral Icterus Ears/Nose/Mouth/Throat: Mucous Membranes Moist Respiratory: Symmetrical Chest Expansion and Respiratory Effort, Clear to Auscultation Cardiovascular: NL Sounds; No Murmurs; No JVD, RRR, - - 1+R LE edema Abdominal: NL Sounds; No Tenderness; No Distention Extremities: No Clubbing, Cyanosis Skin: No Nodules or Sclerosis, - - incision not inspected by myself Neurological: - - alert, seems mostly oriented, slow to come up with some answers to questions Result Diagrams: 04/29/18 05:24 04/28/18 06:06 Assess/Plan/Problems-Billing Ms Cruz is a 72 yo female with significant PMHx alcoholic cirrhosis, COPD, and osteoarthritis presents for elective right total knee arthroplasty with Dr. Merchant on 04/26/18. Patient was found to have altered mental status and hospital medicine was consulted for co-management. - Patient Problems (1) Hepatic encephalopathy Current Visit: Yes Status: Acute Code(s): K72.90 - HEPATIC FAILURE, UNSPECIFIED WITHOUT COMA SNOMED Code(s): 66960004 Comment: The patient yesterday was noted to be confused. Her ammonia level was elevated at 60. Today her ammonia is 97 but her mental status is improved from yesterday per the orthopedics PA. Will start lactulose 15g po BID. I informed the patient her goal is 3-4 loose BMs per day. (2) Status post total right knee replacement Current Visit: Yes Status: Acute Code(s): Z96.651 - PRESENCE OF RIGHT ARTIFICIAL KNEE JOINT SNOMED Code(s): 5172578058632 Comment: Management per orthopedics. INR much more elevated today than yesterday. Coumadin has been on hold since yesterday. Will repeat INR tomorrow AM. No vitamin K at this time as she is not bleeding and has not had a significant drop in H/H. (3) Anxiety Current Visit: Yes Status: Acute Code(s): F41.9 - ANXIETY DISORDER, UNSPECIFIED SNOMED Code(s): 06974885 Comment: Continue clonazepam. (4) COPD (chronic obstructive pulmonary disease) Current Visit: Yes Status: Acute Code(s): J44.9 - CHRONIC OBSTRUCTIVE PULMONARY DISEASE, UNSPECIFIED SNOMED Code(s): 44462290 Comment: No signs of exacerbation. Continue albuterol and spiriva. (5) DVT prophylaxis Current Visit: Yes Status: Acute Code(s): MRU6481 - SNOMED Code(s): 783432770 Comment: Supratherapeutic INR (6) DNR (do not resuscitate) Current Visit: Yes Status: Acute
[2018-04-29] MEDS ORDERED: Magnesium Sulfate 2 GM IV* 2 GM/50 ML BAG IVPB ONE (11:00)
[2018-04-29 14:07] LABS: INR 5.35 (0.77-1.02)
[2018-04-29 16:51] VITALS: BP 101/48
[2018-04-29] MEDS ORDERED: Lactulose* 15 ML UDC PO SCH (21:00)
--- NOTE | 2018-05-03 21:25 | DS ---
CC: Dr. Johnie Merchant DISCHARGE SUMMARY: DATE OF ADMISSION: 04/26/18 DATE OF DISCHARGE: 04/29/18 SURGEON: Dr. Johnie Merchant. COMPUTER PROJECT MANAGER: BONITA Herring OPERATIVE PROCEDURE: Right total knee arthroplasty. HISTORY: Ms. Cruz is a 72-year-old female who has a long history of right knee pain. She failed conservative management and elected to undergo a right total knee arthroplasty. HOSPITAL COURSE: The patient was admitted to [facility] on 04/26/18. She underwent a righ t total knee arthroplasty without complication. Postop day 1, she was well-appearing in no acute dis tress. Dressing was clean, dry, and intact. She was neurovascularly intact distally. Postop day 2, the patient was again well appearing, in no acute distress, alert and oriented x3. Despite being hope rt and oriented, the patient required frequent redirection with conversation with strange commentary. She was tremulous which the patient reports as baseline, though this was much less severe on postop day 1. She was also hypoxic on room air as low as 89 and her INR was noted to be 4.01. We were con cerned for hepatic encephalopathy. Hospitalist Service was consulted and lactulose was started. On 0 04/29/18, mentation improved. The dressing was changed. The incision was clean, dry, and intact. Ne urovascularly intact distally. There was no obvious bleeding. The patient's INR went up to 7.0. Sh e was continued on lactulose and she was transferred to [facility] for continuation with rehab. At the bre e of discharge, her oxygen saturation had improved to 94 on room air. She had no current complaints. DISCHARGE MEDICATIONS: 1. Clonazepam 0.5 mg p.o. q.a.m. and Ambien 5 mg p.o. at bedtime, which were recommended to be held until acute encephalopathy had cleared. 2. Albuterol. 3. Ventolin 2 puffs inhaled q.6 hours p.r.n. 4. Naproxen 220 mg p.o. q.12 hours p.r.n. 5. Prevacid 15 mg p.o. at bedtime. 6. Duloxetine 30 mg p.o. q.a.m. 7. Vitamin D 5000 units p.o. b.i.d. Please also hold this until INR has normalized and may resume. 8. Stiolto Respimat 1 puff inhaled b.i.d. 9. DuoNeb 1 neb inhaled q.4 hours p.r.n. 10. Lactulose 15 mg p.o. b.i.d. with a goal of 3 to 4 loose stools per day until encephalopathy is c leared. 11. Tramadol 50 mg p.o. q.6 hours p.r.n. to be taken for acute pain. Please limit use as much as po ssible. 12. Warfarin 2 mg tabs, 0 to 5 tabs, daily dose depends on INR with careful monitoring daily until s tabilized and then may monitor it twice a week. DISCHARGE PLAN: The patient will be discharged to [facility]. She will be weightbearing as tolerated. Nu rse to remove mauricio in 10 to 12 days. On 04/29/18, please hold Coumadin. Recheck INR on 04/30/18 to determine if Coumadin needs to be held again or if it can be started carefully at a lower dose. P ain control with Ultram 50 mg every 6 hours as needed for pain, please use sparingly. Wean off the T ylenol or ibuprofen only, again please use sparingly. Followup with Dr. Merchant in 4 weeks. Call for an appointment. She is discharged to [facility] in stable condition on 04/29/18. BONITA KEYES [id number]/[facility] #: [id number]
== END 2018-04-29 16:44 | DRG 470 ==
LOC: AA 04-26 05:42 → SSU 04-26 10:00 → PMRU 04-29 16:41 → SSU 04-29 16:41
PROVIDERS: ADMIT Orthopaedic Surgery; ATTEND Orthopaedic Surgery
PROC: 0SRC0J9 Replacement of Right Knee Joint with Synthetic Substitute, Cemented, Open Approach (ICD-10-PCS; principal; 2018-04-26 07:30)
DX: M17.11 Unilateral primary osteoarthritis, right knee (principal); K52.1 Toxic gastroenteritis and colitis; B00.89 Other herpesviral infection; J44.9 Chronic obstructive pulmonary disease, unspecified; K21.9 Gastro-esophageal reflux disease without esophagitis; R91.8 Other nonspecific abnormal finding of lung field; I25.10 Atherosclerotic heart disease of native coronary artery without angina pectoris; F17.210 Nicotine dependence, cigarettes, uncomplicated; K70.30 Alcoholic cirrhosis of liver without ascites; F41.9 Anxiety disorder, unspecified; Z96.642 Presence of left artificial hip joint; Z83.3 Family history of diabetes mellitus; Z80.9 Family history of malignant neoplasm, unspecified; K72.90 Hepatic failure, unspecified without coma; Z88.8 Allergy status to other drugs, medicaments and biological substances; Z98.1 Arthrodesis status; Z98.42 Cataract extraction status, left eye; Z98.41 Cataract extraction status, right eye; T47.3X5A Adverse effect of saline and osmotic laxatives, initial encounter; Y92.239 Unspecified place in hospital as the place of occurrence of the external cause; Z66 Do not resuscitate
CPT/HCPCS: 36415; 36600; 71046; 80048; 80076; 82140; 82803; 83735; 85014; 85018; 85049; 85610; 88305; 88311; A9270-GY; C1776; G8978-GP-CJ; G8979-GP-CI; G8987-GO-CI; G8988-GO-CI; G8989-GO-CI; J0690; J1100; J1644; J2001; J2250; J2704; J2795; J3010; J3475

== ENCOUNTER 2017-07-03 09:16 | Inpatient (IN) | payer MEDICARE ==
[~2017-07-03 09:16] MED LIST: Buffered Lidocaine 0.9% SYRIN* 5 ML/SYR SYRINGE INTRADERM ONE; Dexamethasone IV* 4 MG/ML 1 ML (4 MG) IV SLOW PU ONE; Levalbuterol 0.63MG/3ML NEB* UNIT OF USE INH ONE
[2017-07-03] MEDS ORDERED: Dexamethasone IV* 4 MG/ML 1 ML (4 MG) ONE (09:28)
[2017-07-03] MEDS ORDERED: ceFAZolin 2 GM PREMIX (*) 2 GM/50 ML BAG IVPB ONE (09:29)
[2017-07-03] MEDS ORDERED: Levalbuterol 0.63MG/3ML NEB* UNIT OF USE INH ONE (09:33)
[2017-07-03] MEDS ORDERED: Midazolam* 1 MG/ML 5 ML VIAL (5 MG) ONE (11:19)
[2017-07-03] MEDS ORDERED: fentaNYL* 50 MCG/ML 2 ML VIAL (100 MCG VIAL) ONE ×3 (11:19→12:54)
[2017-07-03] MEDS ORDERED: Ondansetron ODT TAB* 4 MG ONE (11:19)
[2017-07-03] MEDS ORDERED: ROPIVACAINE 5 MG/ML 30 ML BTL (0.5%) ONE (11:30)
[2017-07-03] MEDS ORDERED: Propofol* 10 MG/ML 20 ML BTL IV PUSH ONE (11:51)
[2017-07-03] MEDS ORDERED: Bupivacaine 0.5% PF 10 ML VIAL INJ ONE ×2 (12:12→12:26)
[2017-07-03] MEDS ORDERED: fentaNYL* 50 MCG/ML 2 ML VIAL (100 MCG VIAL) IV PRN (12:47)
[2017-07-03] MEDS ORDERED: HYDROmorphone INJ* 1 MG/ML CARPUJECT SYRINGE IV PRN (12:47)
[2017-07-03] MEDS ORDERED: Naloxone* 0.4 MG/ML 1 ML VIAL IV PRN (12:47)
[2017-07-03] MEDS ORDERED: DiMENhydriNATE IV* 50 MG/ML VIAL IV PUSH PRN (12:47)
[2017-07-03] MEDS ORDERED: oxyCODONE/Acetamin 5/325 MG* TAB PO PRN ×2 (12:47→20:15)
[2017-07-03] MEDS ORDERED: Metoprolol Tartrate IV* 1 MG/ML 5 ML VIAL ONE (13:23)
[2017-07-03] MEDS ORDERED: oxyCODONE/Acetamin 5/325 MG* TAB ONE (17:18)
--- NOTE | 2017-07-03 19:49 | RAD ---
Indication: RIGHT hip pain post fall. Comparison: No relevant prior exams available on the [facility] PACS for comparison. Technique: AP pelvis and AP and frog-leg lateral views RIGHT hip. Report: The RIGHT hip is normally located. No fracture of the RIGHT proximal femur evident. Acute grossly nondisplaced fracture involving the junction of the superior and inferior RIGHT pubic rami with the os pubis. Suggestion of associated periosseous soft tissue swelling/hematoma. No visualized fracture of the posterior pelvic ring evident. LEFT hip prosthesis present. IMPRESSION: Acute grossly nondisplaced fracture involving the junction of the superior and inferior RIGHT pubic rami with the os pubis. Suggestion of associated periosseous soft tissue swelling/hematoma without significant perceived mass effect.
[2017-07-03] MEDS ORDERED: Ondansetron TAB* 4 MG PO PRN (20:15)
[2017-07-03] MEDS ORDERED: Acetaminophen TAB* 325 MG PO PRN (20:15)
[2017-07-03] MEDS ORDERED: diPHENhydraMINE PO* 25 MG PO PRN (20:15)
--- NOTE | 2017-07-03 20:25 | RAD ---
INDICATION: Post ORIF RIGHT radius and ulna. COMPARISON: None. TECHNIQUE: AP and crosstable lateral views RIGHT wrist. REPORT AND IMPRESSION: Overlying splint/cast limits image quality. Bone density appears decreased throughout. Volar cortical plate and fixation screws bridges the distal metaphyseal fracture of the radius and ulnar volar cortical plate bridges the adjacent distal diaphyseal distal metaphyseal fracture of the ulna. Alignment is grossly anatomic.
[2017-07-03] MEDS ORDERED: clonazePAM TAB(*) 0.5 MG PO PRN (20:36)
[2017-07-03] MEDS ORDERED: Morphine VIAL* 4 MG/ML VIAL (1 ml vial) IV PRN (20:38)
[2017-07-03] MEDS: NS 0.9% 1000 ML* 1,000 ML IV SCH (21:30)
[2017-07-04] MEDS: NS 0.9% 1000 ML* 1,000 ML IV SCH ×2 (07:47→19:36)
--- NOTE | 2017-07-04 08:46 | PN ---
Progress Note - Progress Note Date of Service: 07/04/17 SOAP: Subjective: POD #1 right distal radius and ulna ORIF, s/p mechanical fall in PACU, now with pubic rami fx. States that she is doing pretty well. C/o mild pain in groin and pain with right hip flexion. Denies paresthesias or numbness to lower extremities, still with residual numbness to RUE from preoperative nerve block. Denies CP/SOB. Nurse reports some wheezing on exam. Objective: Vitals: Temp Pulse Resp BP Pulse Ox 97.7 F 83 16 119/57 98 07/04/17 07:54 07/04/17 07:54 07/04/17 07:54 07/04/17 07:54 07/04/17 07:54 Gen: A&O x3, NAD at rest laying in bed RUE: Splint C/D/I, moderate edema to fingers. Sensation decreased but good f/e of digits. Cap refill <2 sec. RLE: Skin intact, able to straight leg raise slightly, but reports pain in pelvis/groin. +f/e at ankles and MTPs, N/V intact Assessment: POD #1 right distal radius/ulna ORIF, non-operative pubic rami fx Plan: PT/OT to evaluate. WBAT BLE, NWB RUE Home inhalers ordered to improve wheezing and O2 sats on RA Possible d/c tomorrow if cleared by PT
[2017-07-04] MEDS ORDERED: Spiriva Inhaler DEVICE* 1 EACH DEVICE ONE (09:00)
[2017-07-04] MEDS ORDERED: Spiriva Inhaler DEVICE* 1 EACH DEVICE SCH (09:00)
[2017-07-04] MEDS: Tiotropium CAP.INH* CAP.INH/18 MCG (USE ORDER SET !) INH SCH (09:46)
[2017-07-04] MEDS: ceFAZolin 1 GM VIAL(*) 1 GM in NS 0.9% 50 ML* 50 ML IVPB SCH ×2 (10:48→18:04)
[2017-07-04] MEDS: oxyCODONE TAB* 5 MG TAB PO PRN ×2 (11:30→15:59)
[2017-07-04] MEDS ORDERED: Nicotine Inhaler* 10 MG AMP ONE (12:43)
[2017-07-04] MEDS ORDERED: Mouth Piece, Nicotine* 1 EACH CARTRIDGE ONE (12:44)
[2017-07-04] MEDS ORDERED: Nicotine Inhaler* 10 MG AMP INH PRN (13:09)
[2017-07-04] MEDS ORDERED: Mouth Piece, Nicotine* 1 EACH CARTRIDGE INH ONE (14:00)
--- NOTE | 2017-07-04 14:01 | HP ---
HISTORY AND PHYSICAL: DATE OF ADMISSION: 07/03/17 REASON FOR ADMISSION: Right superior pubic ramus fracture. HISTORY: The patient is a 71-year-old woman, right hand dominant, who had what was scheduled as an outpatient [place] [facility] [place] by myself, which consisted of open reduction and internal fixation of the distal radius and distal ulna, right. Surgery was uncomplicated. The patient had monitored anesthesia care, sedation as well as a regional nerve block. The patient recovered in the PACU as is routine for postoperative patients. The patient used the restroom, bathroom in the PACU. She fell from a standing height onto her right side. The patient thought that she tripped. There was no loss of consciousness or fainting. The patient hit her right hip. She may have grazed the right upper extremity that was splinted. The patient took a wheelchair back to her bed and just with several steps at transfer to bed described the pain, and inability to comfortably ambulate. Even in the bed in the PACU, the patient continued to have right hip area pain. The patient has a history of chronic right knee pain. She was actually scheduled to undergo knee arthroplasty surgery on the right in the next several months by Dr. Merchant because of severe osteoarthritis, painful. This recent right wrist fracture, severe, sustained 06/25/17 and it its required treatment will likely delay that. The patient felt very unsteady on her feet going wheelchair to bed and continues to describe right hip pain. PAST MEDICAL HISTORY: Anxiety, COPD, prior herpes lesions on the face after eye surgery, knee osteoarthritis. PAST SURGICAL HISTORY: Right knee surgery x4, bilateral elbow lateral epicondylitis surgery, left cubital tunnel release, left carpal tunnel release, left trigger finger release, partial hysterectomy, cervical spine fusion, bilateral cataract excision, left total hip arthroplasty, right lung biopsy. MEDICATIONS: Zolpidem p.r.n. q.h.s., clonazepam q.h.s. p.r.n., cyclobenzaprine , albuterol p.r.n., lansoprazole, tiotropium inhaler, tramadol p.r.n. pain. ALLERGIES: LATEX (perioral skin changes, erythema), VICODIN (oversedation. Patient described "early paralytic stage sleep" when she took many just prior to bed). SOCIAL HISTORY: The patient admits to 2 to 3 drinks per day or more. The patient has smoked 1 pack per day x35 years. REVIEW OF SYSTEMS: The patient describes no loss of consciousness. No headache. The patient's right wrist does not hurt her currently. The patient does have right hip pain. No left hip pain in bend. PHYSICAL EXAMINATION GENERAL: No acute distress, alert and oriented. Appropriate mood and affect for a postoperative patient, proper dressing and hygiene. VITAL SIGNS: At 5:45 p.m. the patient had a pulse rate of 81, respiratory rate of 22, oxygen saturation 92% on room air, and a blood pressure of 120/59. EXTREMITIES: Gait was not assessed, well coordinated bilateral upper and lower extremities with the exception of the right upper extremity that was in a splint , sugar tong, forearm, placed intraoperatively. The patient was normocephalic, atraumatic. No pain with palpation of the neck. No pain with active range of motion in the neck in all directions. No pain with passive range of motion of the joints of the left upper extremity. Right upper extremity had a splint in place. The patient had a sensation in all peripheral nerve distributions including dorsal sensory branch of the ulnar nerve. Motor nerve functions intact. Cap refill less than 2 seconds, some finger swelling present. Positive tenderness to palpation of the right pubic ramus. The patient has some minimal only discomfort at terminal ranges of motion of the hip. The patient was able to passively range 100 degrees of flexion, 45 degrees of external and 20 degrees of internal rotation of the hip. Through most of that passive range of motion, the patient was pain free, although she did have pain occasionally between and at terminal ranges of motion. I was able to range her relatively quickly. No significant pain with logroll. Neurovascularly intact distally. DIAGNOSTIC STUDIES: Imaging: X-rays, 3 views of the right hip were reviewed by me. They have been obtained in the PACU. Additionally, a nondisplaced to minimally displaced right pubic ramus fracture. No healing evident and it looks acute. Left total hip arthroplasty and components were in place with no fracture visible about them. Two x-ray views of the right wrist obtained in the PACU shows "fractures are well reduced and hardware in place without change from the operating room." ASSESSMENT: 1. Right pubic ramus fracture. 2. Status post open reduction and internal fixation right distal radius and right distal ulna, with separate plates and screws, 07/03/17. PLAN: 1. Discussed the patient going home this evening. Because of her right hip pain, lack of confidence in her ability to walk safely, she and I both agreed that this would not be a good idea. The patient's sister was present in the PACU and also agreed with this. The patient felt unsteady on her feet both because of her right knee osteoarthritis and her right pubic ramus pelvis fracture. 2. The patient was admitted with a right pubic ramus fracture to my service. She was to receive pain control. In the morning, she was to receive physical and occupational therapy to help ensure the patient's safety and ability to function at home. 3. The patient is weightbearing as tolerated, bilateral lower extremities. I suggested that she could use a cane in the contralateral left hand. She could possibly also use a platform walker if she does not weight bear through the right wrist. 4. The patient has a sugar tong splint in place, forearm right upper extremity. Especially given the patient's significant osteopenia and despite the excellent purchase of this hardware, it is important that the patient does not fall on her wrist again and it is important that she does not weight bear through her right wrist. 5. The patient will follow up in 10 days in my clinic for removal of the splint , x- rays, and placement in either a removable wrist brace or a cast, based on her preference and stability walking at that time. 6. Based on the walker, if needed that the therapist may provide the patient and might consider adding an ulnar-based slab to the patient's splint for protection if she is going to weight bear through the right elbow and forearm. I will discuss with the physical therapist. Addendum: I added an ulnar long arm plaster slab to the patient's splint to further immobilizer her to allow right upper extremity (but not right wrist) weight bearing is required for ambulation. [id number]/[facility] #: [id number] THAIS
[2017-07-04] MEDS: Heparin VIAL(*) 5000 UNITS/ML VIAL (FIVE THOUSAND) SUBCUT SCH ×2 (14:17→22:41)
[2017-07-04] MEDS ORDERED: Al Hydrox/Mg Hydrox/Simet LIQ* 30 ML UDC ONE (15:42)
[2017-07-04] MEDS: Al Hydrox/Mg Hydrox/Simet LIQ* 30 ML UDC PO PRN ×2 (15:44→22:40)
[2017-07-05] MEDS: ceFAZolin 1 GM VIAL(*) 1 GM in NS 0.9% 50 ML* 50 ML IVPB SCH (01:41)
[2017-07-05] MEDS: oxyCODONE TAB* 5 MG TAB PO PRN (03:30)
[2017-07-05] MEDS: NS 0.9% 1000 ML* 1,000 ML IV SCH (05:54)
[2017-07-05] MEDS: Heparin VIAL(*) 5000 UNITS/ML VIAL (FIVE THOUSAND) SUBCUT SCH ×3 (05:55→20:52)
[2017-07-05] MEDS: Al Hydrox/Mg Hydrox/Simet LIQ* 30 ML UDC PO PRN (08:50)
[2017-07-05] MEDS: Tiotropium CAP.INH* CAP.INH/18 MCG (USE ORDER SET !) INH SCH (08:50)
[2017-07-05] MEDS ORDERED: Cyclobenzaprine TAB* 10 MG PO PRN (11:13)
[2017-07-05] MEDS ORDERED: clonazePAM TAB(*) 0.5 MG PO PRN (11:13)
--- NOTE | 2017-07-05 11:21 | PN ---
Progress Note - Progress Note Date of Service: 07/05/17 SOAP: Subjective: POD #2 Right distal radius/ulna ORIF, non-op pubic rami fx. States that she is doing ok. Pain well controlled. Had some difficulty with ambulation yesterday, PT feels as though she needs more help. Nurse reports persistent wheezing on exam, low O2 sats on room air. Also noted some confusion/auditory hallucinations yesterday. Denies CP/SOB Objective: Vitals: Temp Pulse Resp BP Pulse Ox 97.9 F 80 18 129/67 97 07/05/17 07:58 07/05/17 07:58 07/05/17 08:00 07/05/17 07:58 07/05/17 08:00 Gen: A&Ox3, NAD at rest RUE: Splint C/D/I, +f/e at digits, N/V intact RLE: Skin intact, able to flex at hip with some pain. +f/e at ankles, MTPs, N/V intact Assessment: POD #2 Right distal radius/ulna ORIF, non-op pubic rami fx Plan: Hospitalist consult for wheezing/congestion, possible ETOH withdrawal Cont PT/OT, NWB RUE
[2017-07-05] MEDS ORDERED: Albuterol HFA INHALER* 8 gm MDI INH PRN (12:15)
[2017-07-05] MEDS: Albuterol/Ipratropium NEB.SOL* Albuterol 2.5 MG/Ipratropium 0.5 MG 3 ML INH SCH ×2 (12:46→19:04)
[2017-07-05] MEDS: Pantoprazole IV* 40 MG IV SCH (12:46)
[2017-07-05 13:50] LABS: Hematocrit 37 % (35-47); Hemoglobin 12.4 g/dl (12.0-16.0); Mean Corpuscular HGB Conc 34 g/dl (31-36); Mean Corpuscular Hemoglobin 32 pg (27-31); Mean Corpuscular Volume 94 fL (80-97); Red Blood Count 3.89 10^6/ul (4.0-5.4); Red Cell Distribution Width 17 % (10.5-15); White Blood Count 8.5 10^3/ul (3.5-10.8)
[2017-07-05 14:03] LABS: EGFR Non-African American 119.2 (>60)
[2017-07-05] MEDS ORDERED: Iohexol 350* (CONTRAST) 500 ML MDV IV ONE (14:10)
[2017-07-05 14:13] LABS: ABS Basophils 0.1 10^3/ul (0-0.2); ABS Eosinophils 0 10^3/ul (0-0.6); ABS Lymphocytes 1.6 10^3/ul (1.0-4.8); ABS Monocytes 0.5 10^3/ul (0-0.8); ABS Neutrophils 6.3 10^3/ul (1.5-7.7); ABS Nucleated RBC 0 10^3/ul; Eosinophil % 0.2 % (0-6); Lymphocyte % 19.1 % (25-47); Mean Platelet Volume 8.9 um3 (7.4-10.4); Nucleated Red Blood Cells % 0.1; Platelet Count 96 10^3/ul (150-450)
--- NOTE | 2017-07-05 15:09 | RAD ---
INDICATION: Chest pain. Short of breath. Evaluate for pulmonary embolus. COMPARISON: None TECHNIQUE: Axial source images were obtained from the thoracic inlet to the hemidiaphragms following administration of [address] angiographic technique was utilized. Coronal and sagittal reconstructed images were acquired. CHEST FINDINGS: Neck/thyroid: The visualized neck to include the thyroid appear normal. Chest wall: There are no acute abnormalities of the bony thorax or chest wall. There is no supraclavicular, infraclavicular, or axillary lymphadenopathy. Lungs : There is right upper lobe infiltrate with consolidation. Suggest serial chest radiographs to document resolution there is mild gravity dependent atelectasis. There are some is changes most conspicuous in the lung apices. There are no endobronchial lesions. Cardiomediastinal structures: There is no CT evidence of acute pulmonary embolic disease. The heart is normal in size. There is no pericardial effusion. There is no evidence of aortic aneurysm or dissection. There is no mediastinal or hilar adenopathy. The esophagus appears normal. Pleura : There are no pleural-based masses or effusions. Other: Views the upper abdomen show a lobular configuration of liver suggestive of a cirrhotic liver. IMPRESSION: 1. No CT evidence of acute pulmonary embolic disease. 2. Right upper lobe infiltrative change. Suggest follow-up to document resolution. 3. Underlying emphysematous change. 4. Cirrhotic appearing liver
[2017-07-05] MEDS ORDERED: Lansoprazole SOLUTAB* 30 MG PO SCH (18:00)
--- NOTE | 2017-07-05 19:35 | CONS ---
MEDICAL CONSULT REPORT: DATE OF CONSULT: 07/05/17 REFERRING PHYSICIAN: Dr. Pepe Griffith of the orthopedic service. REASON FOR CONSULT: Postoperative medical management of hypoxia, desaturations , and shortness of breath. HISTORY OF PRESENT ILLNESS: This is a 71-year-old female patient who underwent open reduction internal fixation on 07/03/17 of her right wrist. This procedure was done as an outpatient and was supposed to be sent home same day. However, when she was in the PACU, she lost her footing and fell down and then she was basically having lot of trouble ambulating and transfers were very difficult. She had a lot of pain in the hip and groin area, even at rest the pain continued. Imaging was obtained of the hip and pelvis, and she was found to have a pubic ramus fracture. The patient was admitted at that point and was not having any acute issues. However, in the last 24 hours, nursing staff was describing that she was having shortness of breath and also desaturations to the mid 80s while ambulating and then while she was in physical therapy. A 1 L of oxygen was applied. Her sat kicked up to 97%. The patient at that time was also complaining of some chronic heartburn which she has often. However, she is continuing to desaturate off oxygen and on room air and for these reasons we were asked to consult her for these issues. PAST MEDICAL HISTORY: Significant for: 1. COPD. 2. Tobacco abuse. 3. Anxiety. 4. Osteoarthritis. PAST SURGICAL HISTORY: Significant for: 1. Four surgeries on the right knee. 2. Her recent surgery on the right upper extremity. 3. Carpal tunnel release. 4. Partial hysterectomy. 5. ACDF of the cervical spine. 6. Bilateral cataract removal. 7. Left total hip arthroplasty. 8. Biopsy of the right lung. MEDICATIONS AT HOME: Include: 1. Ambien p.r.n. 2. Clonazepam 0.5 mg 2 times a day as needed and also 0.5 mg as needed at bedtime. 3. Tramadol 50 mg q. 6 hours as needed. 4. Acyclovir 500 mg 2 times a day. 5. Prevacid 30 mg p.o. at bedtime. 6. Aleve two tabs q. 8 hours as needed. 7. Flexeril 10 mg q. 8 hours as needed. FAMILY HISTORY: Noncontributory. Father with lung cancer and emphysema secondary to smoking, but no other cardiac or neurologic disorders. SOCIAL HISTORY: The patient is an active everyday smoker, one pack per day for 35 years. Also, states she drinks alcohol two to three drinks per day sometimes more. Denies any illicit drug use. She is retired and lives with her sister. REVIEW OF SYSTEMS: A 10-point review of systems is negative except as noted in HPI. PHYSICAL EXAM: General: The patient is alert, sitting up in the chair, well appearing, in no acute distress. Vital Signs: Currently, blood pressure 129/79 , heart rate 81, respiratory rate 16, satting at 96% on 1 L nasal cannula, temperature is 97.8. HEENT: The patient is atraumatic and normocephalic. PERRLA with non-icteric sclerae. Extraocular movements are intact. Neck: Supple, nontender. No carotid bruit auscultated. No JVD noted. Cardiovascular : S1 and S2 are present. No murmurs, gallops, or rubs. Lungs: Coarse throughout the lung laboy with bilateral inspiratory and expiratory wheezes, very diminished at the bases. No rhonchi or rales appreciated. Abdomen: Soft , nontender. She does have; however, over the suprapubic area some tenderness to palpation, but overall no pain in the abdomen itself with more over the bony prominence of the pubic bone and into the hip. Extremities: She has +2 distal pulses intact. Full range of motion. Gross motor and sensation are also intact. She has guarding secondary to pain. The right upper extremity is in a sugar-tong splint and partial cast and KARINA wrap. She does have a good distal pulse. I did not visualized her sutures. Neurologic: She is grossly intact. She is alert and oriented x3. There was reported some hallucinations last evening; however, she is not presenting with that to me today. Psychiatric: She is cooperative and appropriate. DIAGNOSTIC STUDIES/LAB DATA: Laboratories are pending. Imaging: X-ray of the hip and pelvis dated 07/03/17 shows acute grossly nondisplaced fracture involving the junction of the superior and inferior right pubic rami with the os pubis suggestion of associated periosteal soft tissue swelling and hematoma without perceived significant mass effect. X-ray of the wrist also dated 05/25/ 18, her postoperative x-ray shows overlying ____ cast. Bone density appears decreased throughout. Volar cortical plate with fixation screws and bridges in the distal metaphyseal fracture of the radius and the ulnar volar cortical plate bridges are in the adjacent distal metaphyseal fracture of the ulna, alignment is grossly anatomic. IMPRESSION: This is a 71-year-old female patient who sustained two significant fractures in the last 72 hours who is now presenting with some acute hypoxia, etiology unclear. Acute hypoxia. At this point, we will do a CTA of her chest. She has been off of her feet for several days because of the pelvic fracture. She does have significant history of smoking and probably has some changes secondary to chronic emphysema. The patient is taking some Spiriva and daily inhalers. However, we will add DuoNeb x3 doses q. 6 hours scheduled as well as albuterol q.2 hours as needed. She needs to be encouraged to do incentive spirometry 10 times every hour while awake and also learn how to guard with pillow for coughing and deep breathing. I have discussed this with the nurse as well. She has had teaching yesterday. However, the patient seems reluctant to stay compliant with these regimens. Having said that given that she just had anesthesia and she has been off her feet, we cannot rule out a pulmonary embolus. We will send her for a CTA of her chest, send for labs as well, she has not had any laboratories in the couple of days. Monitor her renal function and hemoglobin to ensure that this hypoxia is not secondary to acute anemia as a component of her shortness of breath. She is on nicotine replacement for her tobacco addiction. She can have physical therapy as tolerated. Rest of her vital signs seem to be within normal limits. Again, the patient is encouraged to cough and deep breathe and quit smoking indefinitely. We will continue to follow the patient's laboratories and the CTA of her chest. The rest of her recommendations may change based on the studies. Again, this has been communicated to the nursing staff and they are aware of plan of care. We thank you very kindly for the courtesy of this consult and agreed to follow this patient along with you. ALEXA FELIX, PATI [id number]/[facility] #: [id number] THAIS
[2017-07-05] MEDS: Zolpidem TAB* 5 MG PO SCH (20:50)
[2017-07-05] MEDS ORDERED: cefTRIAXone(*) 1 GM in NS 0.9% 50 ML* 50 ML IVPB SCH (22:00)
[2017-07-06] MEDS: Albuterol/Ipratropium NEB.SOL* Albuterol 2.5 MG/Ipratropium 0.5 MG 3 ML INH SCH (01:33)
[2017-07-06] MEDS: Heparin VIAL(*) 5000 UNITS/ML VIAL (FIVE THOUSAND) SUBCUT SCH ×3 (05:38→21:25)
[2017-07-06] MEDS ORDERED: Piperacillin/Tazobac ADVAN(*) 3.375 GM in NS 0.9% 100 ML* 100 ML IVPB ONE (08:30)
--- NOTE | 2017-07-06 08:37 | PN ---
Subjective Date of Service: 07/06/17 Interval History: When asked if pt smoked, pt answered " of course I do, why do you think my lungs are so bad?!" Pt admits to drinking 3 beers a day. Just moved in from [place] to live with her sister . C/o R hip/pelvis pain Objective Active Medications: Al Hydrox/Mg Hydrox/Simethicone (Maalox Plus*) 30 ml PO Q6H PRN PRN Reason: HEARTBURN Last Admin: 07/05/17 08:50 Dose: 30 ml Albuterol (Ventolin Hfa Inhaler*) 1 puff INH Q4H PRN PRN Reason: SOB/WHEEZING Clonazepam (Klonopin Tab(*)) 0.5 mg PO BEDTIME PRN PRN Reason: Insomnia Clonazepam (Klonopin Tab(*)) 0.5 mg PO BID PRN PRN Reason: ANXIETY Cyclobenzaprine HCl (Flexeril Tab*) 10 mg PO Q8HR PRN PRN Reason: PAIN Heparin Sodium (Porcine) (Heparin Vial(*)) 5,000 units SUBCUT Q8HR PIO Last Admin: 07/06/17 05:38 Dose: 5,000 units Piperacillin Sod/Tazobactam (Sod 3.375 gm/ Sodium Chloride) 100 mls @ 200 mls/ hr IVPB ONCE ONE Stop: 07/06/17 08:59 Morphine Sulfate (Morphine Vial*) 2 mg IV Q4H PRN PRN Reason: PAIN - SEVERE Nicotine (Nicotine Inhaler*) 10 mg INH Q2H PRN PRN Reason: CRAVING Ondansetron HCl (Zofran Tab*) 4 mg PO Q6H PRN PRN Reason: NAUSEA Oxycodone HCl (Roxycodone Tab*) 5 mg PO Q4H PRN PRN Reason: PAIN Last Admin: 07/05/17 03:30 Dose: 5 mg Pantoprazole Sodium (Protonix Iv*) 40 mg IV DAILY [facility] Last Admin: 07/05/17 12:46 Dose: 40 mg Pharmacy Consult (Zosyn Per Pharmacy*) 1 note FOLLOW UP .ZOSYN PER PHARMACY PIO Tiotropium [place] (Spiriva Cap.Inh*) 1 cap INH DAILY PIO Last Admin: 07/05/17 08:50 Dose: 1 cap Zolpidem Tartrate (Ambien Tab*) 5 mg PO BEDTIME PIO Last Admin: 07/05/17 20:50 Dose: 5 mg Vital Signs - 8 hr 07/06/17 07/06/17 01:33 03:15 Temperature 98.3 F Pulse Rate 81 89 Respiratory 20 21 Rate Blood Pressure 144/58 (mmHg) O2 Sat by Pulse 97 91 Oximetry Oxygen Devices in Use Now: None Appearance: 71 yo F in nAD, aAOx3 Eyes: No Scleral Icterus, PERRLA Ears/Nose/Mouth/Throat: NL Teeth, Lips, Gums, Mucous Membranes Moist Neck: NL Appearance and Movements; NL JVP, Trachea Midline Respiratory: Symmetrical Chest Expansion and Respiratory Effort, - - scant b/l mid lung wheezes Cardiovascular: NL Sounds; No Murmurs; No JVD Abdominal: NL Sounds; No Tenderness; No Distention Lymphatic: No Cervical Adenopathy Extremities: No Edema, No Clubbing, Cyanosis Skin: - - R arm in cast, fingers ecchymotic Neurological: Alert and Oriented x 3, NL Muscle Strength and Tone Result Diagrams: 07/05/17 13:35 07/05/17 13:35 Assess/Plan/Problems-Billing Assessment: 71 yo F with h/o COPD, daily ETOH use, anxiety presents after R wrist ORIF and post op fall resulting in pubic rami fx as well as hypoxemia - Patient Problems (1) Hypoxemia Comment: current 02 on RA 94% Pt has known COPD CTA shows no PE but PNA noted, for possible aspiration will switch from Caftriaxone to zosyn (2) COPD (chronic obstructive pulmonary disease) Comment: not in exacerbation, cont albuterol, spiriva, Duonebs prn (3) Zoster Comment: 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
[2017-07-06] MEDS ORDERED: Albuterol/Ipratropium NEB.SOL* Albuterol 2.5 MG/Ipratropium 0.5 MG 3 ML INH PRN (08:43)
[2017-07-06] MEDS: Tiotropium CAP.INH* CAP.INH/18 MCG (USE ORDER SET !) INH SCH (08:45)
[2017-07-06] MEDS: Pantoprazole IV* 40 MG IV SCH (08:45)
[2017-07-06] MEDS ORDERED: Zosyn per Pharmacy* NOTE FOLLOW UP SCH (09:00)
--- NOTE | 2017-07-06 09:05 | PN ---
Progress Note - Progress Note Date of Service: 07/06/17 SOAP: Subjective: POD #3 Right distal radius/ulna ORIF, non-op pubic ramus fx. Pt doing well, no c /o significant pain. Found to have pneumonia on CT, on IV abx per medicine. Still requiring supplemental O2. Unsteady with walker per PT. Denies CP, SOB. Objective: Vitals: Temp Pulse Resp BP Pulse Ox 98.4 F 81 16 145/60 96 07/06/17 07:27 07/06/17 07:27 07/06/17 07:27 07/06/17 07:27 07/06/17 07:27 Gen: A&Ox3, NAD at rest sitting in chair RUE: Splint C/D/I, mild ecchymosis and edema to fingers, +f/e at digits, n/v intact Assessment: POD #3 Right distal radius/ulna ORIF, non-op pubic ramus fx Plan: Discussed with medicine, pt likely to need IRMA for more PT given unsteadiness with walker Cont abx per medicine Cont PT/OT
[2017-07-06] MEDS: oxyCODONE TAB* 5 MG TAB PO PRN ×3 (10:45→21:23)
[2017-07-06] MEDS: ZOSYN 3.375 GM Q8H per EXTENDED INFUSION IVPB SCH ×4 (14:10→21:25)
[2017-07-06] MEDS: Zolpidem TAB* 5 MG PO SCH (21:24)
[2017-07-07] MEDS: oxyCODONE TAB* 5 MG TAB PO PRN ×4 (01:56→22:42)
--- NOTE | 2017-07-07 04:27 | OP ---
DATE OF OPERATION: 07/03/17 - ROOM #348 DATE OF : 47 SURGEON: Pepe Griffith MD PIPE STEM ALIGNER: BONITA Seo. A physician physical therapist assistant was required for the length of the procedure for positioning, retraction, manipulation and closure. ANESTHESIOLOGIST: Hair Crawford MD ANESTHESIA: Monitored anesthesia care, regional nerve block. PRE-OP DIAGNOSES: 1. Right distal radius fracture, displaced. 2. Right distal ulnar fracture, displaced, comminuted including the ulnar neck , ulnar styloid process and ulnar head. POST-OP DIAGNOSES: 1. Right distal radius fracture, displaced. 2. Right distal ulnar fracture, displaced, comminuted including the ulnar neck , ulnar styloid process and ulnar head. OPERATIVE PROCEDURES: 1. Open reduction and internal fixation, right distal radius fracture, extraarticular. 2. Open reduction and internal fixation, right distal ulnar fracture, including ulnar shaft, neck, head, and ulnar styloid process. ANTIBIOTICS: Ancef 2 g IV. IV FLUIDS: 1900 cc crystalloid. TOURNIQUET TIME: 120 minutes. [facility]-KR-HBCL TIME: 198 minutes. RADIATION: Mini C-arm use, 215 seconds, for an exposure of 77.72 mGy. SPECIMEN: None. IMPLANTS: Synthes volar polyaxial locking plate, distal radius. Synthes 2.0 mm distal ulnar hook plate. Distal radius fracture plate had number of locking 2.4 mm screws through it and 1 locking 2.7 mm through its oval hole proximally. Distal ulnar fracture plate had 2.0 mm locking screws through it. COMPLICATIONS: None. ESTIMATED BLOOD LOSS: Less than 50 cc. INDICATIONS FOR PROCEDURE: The patient is a 71-year-old woman, right hand dominant, who sustained an injury with a fall at home on 06/25/17, 8 days preoperatively. She tripped on a rug and fell on an outstretched right wrist. She had pain, swelling, and deformity. I saw the patient at [facility]. I diagnosed the patient by imaging with a distal radius fracture, predominantly transverse and extraarticular. Initial films showed significant amount of dorsal tilt of the distal radius. More significant was an ulnar neck fracture with an ulnar styloid process fracture also visible. I measured volar apex angulation at the ulnar neck of 42 degrees and it was 28 degrees in angulation on an oblique view. Knowing the instability of distal radius fractures associated with ulnar neck fractures as well as appreciating the significance of this angular deformity of the distal ulna, I thought that open reduction and internal fixation is more appropriate than an attempted closed reduction maneuver. The patient and I have discussed surgical management. At the end of clinic, I placed the patient into a cast to reduce her swelling of soft tissue more expeditiously and for comfort. I obtained several x-ray views after casting just to obtain a better lateral views than had been obtained at start of the clinic visit. These showed slightly improved reduction of fracture fragments, but given the angulation seen before and instability of distal radius fractures associated with ulnar neck fractures, I thought surgery was still the best option. DESCRIPTION OF PROCEDURE: In preoperative holding, the patient signed a written consent. Operative extremity was marked in preoperative holding. The patient's cast was removed in preoperative holding. The patient had had some ecchymosis about the dorsal aspect of the wrist and forearm, but the volar and ulnar aspects of the wrist have been spared. Dr. Crawford performed a regional nerve block. The patient was taken back to the operating room and placed supine on operating room table. A right hand table was attached. The patient was sedated. A tourniquet was placed about right upper arm. The right upper extremity was prepped and draped. Surgical time-out was performed. As the patient's regional nerve block had not fully yet anesthetized the skin, I placed just several cc of local anesthetic about the skin and planned skin incision, volar, approximately 3 cc of 0.5% Marcaine without epinephrine. I next made a skin incision, 7 cm, for a standard volar approach to the distal radius. I dissected down to the FCR tendon. I incised the tendon sheath, retracted the tendon ulnarly, incised the subsheath. I retracted the FPL ulnarly and identified the pronator. I released the pronator off the radial aspect of the distal radius and released it off bone retracting it ulnarly. I identified the fracture site, irrigated it well, released a little bit of hematoma, removing it. I performed a reduction maneuver. I placed 2 K-wires through the radial styloid to maintain provisional reduction. I applied a medium width Synthes volar locking plate. I pinned it in place. I adjusted its position once and re-pinned it. I then drilled in place a 2.4 mm nonlocking screw through the oval hole in the plate proximally. I moved the plate distally the slightest amount. I liked my reduction as well as the plate placement. I next filled the plate proximally and distally with 2.4 mm locking screws. I, at the end, exchanged my 2.4 mm nonlocking screw for a 2.7 mm nonlocking screw in the proximal oval hole. X-rays confirmed excellent placement of hardware, excellent length of screws, and excellent reduction of the distal radius. Irrigation. I placed several stitches closing the FCR tendon subsheath to the pronator quadratus, figure-of- eight simple stitches. I next placed 3 buried simple stitches into the subcutaneous tissue with Vicryl 3-0 suture. I next turned by attention to the ulna. I made a standard skin incision overlying the ulnar aspect of the distal ulna. I extended it several times later to proximally 6 cm in length. I dissected through the subcutaneous tissue down to the ulna, between the FCU and the ECU tendons. I looked carefully for the dorsal sensory branch of the ulnar nerve and I certainly encountered it. I placed a vessel loop around it and retracted it dorsally. This dissection was made with the arm on arm board, therefore with the forearm in a supinated position. As expected as is typical with these fractures, there is significant comminution of this fracture with not only a transverse or oblique fracture about the ulnar neck, but also a fracture of the ulnar-most aspect of the ulnar head and then fracture of the ulnar styloid. Reduction was difficult. I reduced the distal ulna and placed a K-wire through the most distal of the fracture lines to obtain some amount of provisional reduction. I considered using Synthes plates volarly, first the 2.4 mm and then the 2.0 mm. Ultimately , it was clear that neither of these would have sufficient purchase distally to be stable. Therefore, I decided to use a ulnar hook plate to fix this fracture. We opened Synthes ulnar hook plate 2.0 mm. I placed that on the ulnar styloid process, reduced the fractures and placed a screw proximal to ulnar fracture lines, locking. I filled the plate up with 2.0 mm locking screws. X-rays showed excellent hardware placement and reduction of bone. I had noted the tiniest amount of supination at the more oblique proximal most fracture line, but bone was otherwise nicely lined up. I took a variety of mini C-arm images. With the forearm in the vertical position, the plate was no longer straightly ulnar and was volarly located as well. Fracture fragments was stably reduced and hardware well placed. I made sure I am not to make any of my distal most screws anywhere close to be in bicortical so as to avoid the DRUJ. Irrigation. Closure of the subcutaneous tissue of both incisions with buried simple stitches using Vicryl 3-0 suture. Closure of skin incisions with running stitches using nylon 4-0 suture. Xeroform, 4x4s, sterile Webril, nonsterile Webril. I placed a sugar-tong forearm splint using plaster. I placed a forearm sugar-tong rather than a volar splint just for some added stability given the distal radius and ulna being fractured. The patient was lightened of sedation and brought to the PACU. She was given a simple sling. DISPOSITION: Plan was for the patient to go home with her sister with Percocet as needed for pain control, aspirin for DVT prophylaxis, and Keflex for infection prophylaxis. However, in the PACU, while using the bathroom, the patient sustained a fall and complained of right hip pain. I was at home, but came back to the hospital and assessed the patient. X-rays of the right hip demonstrated a nondisplaced right superior pubic ramus fracture. The right wrist was also x-rayed and showed no new injury. The patient was admitted to my service for observation for pain control and for functional assistance from physical and occupational therapy in the morning. I will follow up with the patient 7 to 10 days postoperatively for a wound check , removal of stitches and removal of the splint. Depending on the patient's preference and weightbearing, I will place the patient either in a removable wrist brace or in a short-arm cast. [id number]/[facility] #: [id number] [facility]CHIATRIC CENTERMaribell
[2017-07-07 05:18] LABS: ABS Basophils 0 10^3/ul (0-0.2); ABS Eosinophils 0.1 10^3/ul (0-0.6); ABS Lymphocytes 1.9 10^3/ul (1.0-4.8); ABS Monocytes 0.5 10^3/ul (0-0.8); ABS Nucleated RBC 0 10^3/ul; Eosinophil % 1.5 % (0-6); Hematocrit 34 % (35-47); Hemoglobin 11.6 g/dl (12.0-16.0); Lymphocyte % 35.3 % (25-47); Mean Corpuscular HGB Conc 34 g/dl (31-36); Mean Corpuscular Hemoglobin 32 pg (27-31); Mean Corpuscular Volume 93 fL (80-97); Mean Platelet Volume 8.6 um3 (7.4-10.4); Nucleated Red Blood Cells % 0.1; Platelet Count 77 10^3/ul (150-450); Red Blood Count 3.68 10^6/ul (4.0-5.4); Red Cell Distribution Width 17 % (10.5-15); White Blood Count 5.5 10^3/ul (3.5-10.8)
[2017-07-07] MEDS: ZOSYN 3.375 GM Q8H per EXTENDED INFUSION IVPB SCH ×6 (05:20→22:58)
[2017-07-07] MEDS: Heparin VIAL(*) 5000 UNITS/ML VIAL (FIVE THOUSAND) SUBCUT SCH ×3 (05:23→22:43)
[2017-07-07 05:32] LABS: EGFR Non-African American 109.3 (>60)
[2017-07-07] MEDS: Tiotropium CAP.INH* CAP.INH/18 MCG (USE ORDER SET !) INH SCH (07:45)
[2017-07-07] MEDS: Pantoprazole IV* 40 MG IV SCH (08:01)
--- NOTE | 2017-07-07 10:15 | PN ---
Subjective Date of Service: 07/07/17 Interval History: Pt feels better. Thinks she may be able to go home oin 2 days. Refuses STR Objective Active Medications: Al Hydrox/Mg Hydrox/Simethicone (Maalox Plus*) 30 ml PO Q6H PRN PRN Reason: HEARTBURN Last Admin: 07/05/17 08:50 Dose: 30 ml Albuterol (Ventolin Hfa Inhaler*) 1 puff INH Q4H PRN PRN Reason: SOB/WHEEZING Albuterol/Ipratropium (Duoneb (Albuterol 2.5 Mg/Ipratropium 0.5 Mg)) 1 neb INH Q4H PRN PRN Reason: SOB/WHEEZING Last Admin: 07/06/17 10:32 Dose: 1 neb Clonazepam (Klonopin Tab(*)) 0.5 mg PO BEDTIME PRN PRN Reason: Insomnia Clonazepam (Klonopin Tab(*)) 0.5 mg PO BID PRN PRN Reason: ANXIETY Cyclobenzaprine HCl (Flexeril Tab*) 10 mg PO Q8HR PRN PRN Reason: PAIN Heparin Sodium (Porcine) (Heparin Vial(*)) 5,000 units SUBCUT Q8HR [facility] Last Admin: 07/07/17 05:23 Dose: 5,000 units Piperacillin Sod/Tazobactam (Sod 3.375 gm/ Sodium Chloride) 100 mls @ 25 mls/ hr IVPB Q8H [facility] Last Admin: 07/07/17 05:20 Dose: 25 mls/hr Morphine Sulfate (Morphine Vial*) 2 mg IV Q4H PRN PRN Reason: PAIN - SEVERE Nicotine (Nicotine Inhaler*) 10 mg INH Q2H PRN PRN Reason: CRAVING Ondansetron HCl (Zofran Tab*) 4 mg PO Q6H PRN PRN Reason: NAUSEA Oxycodone HCl (Roxycodone Tab*) 5 mg PO Q4H PRN PRN Reason: PAIN Last Admin: 07/07/17 08:01 Dose: 5 mg Pantoprazole Sodium (Protonix Iv*) 40 mg IV DAILY [facility] Last Admin: 07/07/17 08:01 Dose: 40 mg Pharmacy Consult (Zosyn Per Pharmacy*) 1 note FOLLOW UP .ZOSYN PER PHARMACY [facility] Tiotropium [place] (Spiriva Cap.Inh*) 1 cap INH DAILY [facility] Last Admin: 07/07/17 07:45 Dose: 1 cap Tiotropium [place]/Olodaterol (Stiolto Respimat Inh [place] (60 Puff)(Nf)) 2 puff INH DAILY [facility] Zolpidem Tartrate (Ambien Tab*) 5 mg PO BEDTIME [facility] Last Admin: 07/06/17 21:24 Dose: 5 mg Vital Signs - 8 hr 07/07/17 07/07/17 07/07/17 03:16 03:49 04:00 Temperature 98.1 F Pulse Rate 88 87 Respiratory 16 18 16 Rate Blood Pressure 146/73 (mmHg) O2 Sat by Pulse 94 94 Oximetry 07/07/17 07/07/17 07/07/17 07:04 08:01 08:05 Temperature 97.6 F Pulse Rate 86 Respiratory 16 16 16 Rate Blood Pressure 128/58 (mmHg) O2 Sat by Pulse 88 Oximetry 07/07/17 08:28 Temperature Pulse Rate Respiratory Rate Blood Pressure (mmHg) O2 Sat by Pulse 93 Oximetry Oxygen Devices in Use Now: None Appearance: 71 yo F in NAD, aAOx3 Eyes: No Scleral Icterus, PERRLA Ears/Nose/Mouth/Throat: NL Teeth, Lips, Gums, Mucous Membranes Moist Neck: NL Appearance and Movements; NL JVP, Trachea Midline Respiratory: Symmetrical Chest Expansion and Respiratory Effort, - - mild rhonchi in RML-much improved from prior Cardiovascular: NL Sounds; No Murmurs; No JVD, RRR Abdominal: NL Sounds; No Tenderness; No Distention Lymphatic: No Cervical Adenopathy Extremities: No Clubbing, Cyanosis, - - R arm in cast, fingers with ecchymosis Skin: No Nodules or Sclerosis Neurological: Alert and Oriented x 3, NL Muscle Strength and Tone Result Diagrams: 07/07/17 05:05 07/07/17 05:05 Assess/Plan/Problems-Billing Assessment: 71 yo F with h/o COPD, daily ETOH use, anxiety presents after R wrist ORIF and post op fall resulting in pubic rami fx as well as hypoxemia - Patient Problems (1) Hypoxemia Comment: current 02 on RA 94% Pt has known COPD CTA shows no PE but PNA noted, for possible aspiration pt will be continued on zosyn (2) COPD (chronic obstructive pulmonary disease) Comment: not in exacerbation, cont albuterol, spiriva, Duonebs prn (3) Zoster Comment: 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 From medical standpoint pt is ready for discharge. Can be placed on Augmentin at discharge to complete 7 days' course
--- NOTE | 2017-07-07 13:44 | PN ---
Progress Note - Progress Note Date of Service: 07/07/17 SOAP: Subjective: []Patient seen at bedside. She is POD #4 Right distal radius/ulna ORIF, non-op pubic ramus fx. Denies CP, SOB, dizziness, nausea, fever or chills. Objective: Vital Signs Temp 98.4 F 07/07/17 11:31 Pulse 90 07/07/17 11:31 Resp 18 07/07/17 11:31 BP 132/61 07/07/17 11:31 Pulse Ox 92 07/07/17 11:31 Intake & Output 07/06/17 07/07/17 07/07/17 18:59 06:59 18:59 Intake Total 275 1150 430 Output Total 1550 1000 300 Balance -1275 150 130 Intake: IVPB 200 110 ABX - ZOSYN 200 110 Oral 275 950 320 Output: Urine 1550 1000 300 Other: Estimated Void Medium Medium # Bowel Movements 0 # Voids 1 Laboratory Last Values WBC 5.5 10^3/ul (3.5-10.8) 07/07/17 05:05 RBC 3.68 10^6/ul (4.0-5.4) L 07/07/17 05:05 Hgb 11.6 g/dl (12.0-16.0) L 07/07/17 05:05 Hct 34 % (35-47) L 07/07/17 05:05 MCV 93 fL (80-97) 07/07/17 05:05 MCH 32 pg (27-31) H 07/07/17 05:05 MCHC 34 g/dl (31-36) 07/07/17 05:05 RDW 17 % (10.5-15) H 07/07/17 05:05 Plt Count 77 10^3/ul (150-450) L 07/07/17 05:05 MPV 8.6 um3 (7.4-10.4) 07/07/17 05:05 Neut % (Auto) 54.2 % (38-83) 07/07/17 05:05 Lymph % (Auto) 35.3 % (25-47) 07/07/17 05:05 Coal % (Auto) 8.6 % (0-7) H 07/07/17 05:05 Eos % (Auto) 1.5 % (0-6) 07/07/17 05:05 Baso % (Auto) 0.4 % (0-2) 07/07/17 05:05 Absolute Neuts (auto) 3.0 10^3/ul (1.5-7.7) 07/07/17 05:05 Absolute Lymphs (auto) 1.9 10^3/ul (1.0-4.8) 07/07/17 05:05 Absolute Monos (auto) 0.5 10^3/ul (0-0.8) 07/07/17 05:05 Absolute Eos (auto) 0.1 10^3/ul (0-0.6) 07/07/17 05:05 Absolute Basos (auto) 0 10^3/ul (0-0.2) 07/07/17 05:05 Absolute Nucleated RBC 0 10^3/ul 07/07/17 05:05 Nucleated RBC % 0.1 07/07/17 05:05 Hem Pathologist Commnt 07/05/17 13:35 Sodium 135 mmol/L (139-145) L 07/07/17 05:05 Potassium 3.8 mmol/L (3.5-5.0) 07/07/17 05:05 Chloride 104 mmol/L (101-111) 07/07/17 05:05 Carbon Dioxide 28 mmol/L (22-32) 07/07/17 05:05 Anion Gap 3 mmol/L (2-11) 07/07/17 05:05 BUN 8 mg/dL (6-24) 07/07/17 05:05 Creatinine 0.55 mg/dL (0.51-0.95) 07/07/17 05:05 Est GFR ( Amer) 140.5 (>60) 07/07/17 05:05 Est GFR (Non-Af Amer) 109.3 (>60) 07/07/17 05:05 BUN/Creatinine Ratio 14.5 (8-20) 07/07/17 05:05 Glucose 121 mg/dL (70-100) H 07/07/17 05:05 Calcium 8.8 mg/dL (8.6-10.3) 07/07/17 05:05 Total Bilirubin 1.60 mg/dL (0.2-1.0) H 07/05/17 13:35 AST 44 U/L (13-39) H 07/05/17 13:35 ALT 15 U/L (7-52) 07/05/17 13:35 Alkaline Phosphatase 116 U/L (34-104) H 07/05/17 13:35 Total Protein 6.4 g/dL (6.4-8.9) 07/05/17 13:35 Albumin 3.0 g/dL (3.2-5.2) L 07/05/17 13:35 Globulin 3.4 g/dL (2-4) 07/05/17 13:35 Albumin/Globulin Ratio 0.9 (1-3) L 07/05/17 13:35 Gen: A&Ox3, NAD at rest sitting in bed RUE: Splint C/D/I though loose proximally, mild ecchymosis and edema to fingers , +flexion and extension at digits, sensation intact distally, capillary refill less than two seconds distally. Splint removed, incisions CDI without surrounding erythema or discharge. Radial pulse 2+. Short arm cast placed. BL LE with good flexion/ extension at hip, knee and ankle. Calves supple and nontender without erythema or edema. Assessment: POD #4 Right distal radius/ulna ORIF, non-op pubic ramus fx Plan: Refuses IRMA, desires DC home when stable. Home with grab bars already in place. Per PT, remains unsteady with walker due to heavy leaning on right arm. Discussed with medicine. Okay to D/C home on augmentin when orthopedically ready. Continue PT/OT Splint replaced with short arm cast. Patient confirms comfort.
[2017-07-07] MEDS: Zolpidem TAB* 5 MG PO SCH (22:43)
[2017-07-08] MEDS: oxyCODONE TAB* 5 MG TAB PO PRN ×3 (04:40→13:57)
[2017-07-08] MEDS: ZOSYN 3.375 GM Q8H per EXTENDED INFUSION IVPB SCH ×4 (06:12→13:58)
[2017-07-08] MEDS: Heparin VIAL(*) 5000 UNITS/ML VIAL (FIVE THOUSAND) SUBCUT SCH ×2 (06:16→13:58)
[2017-07-08] MEDS: Tiotropium CAP.INH* CAP.INH/18 MCG (USE ORDER SET !) INH SCH (08:42)
[2017-07-08] MEDS ORDERED: Bisacodyl SUPP* 10 MG SUPP PR PRN (08:51)
[2017-07-08] MEDS: Pantoprazole IV* 40 MG IV SCH (08:51)
[2017-07-08] MEDS ORDERED: Docusate CAP* 100 MG PO SCH (09:00)
[2017-07-08] MEDS ORDERED: Magnesium Hydroxide LIQ* 30 ML UDC PO SCH (09:00)
[2017-07-08] MEDS ORDERED: ValACYclovir (*) 500 MG TAB PO SCH (09:00)
--- NOTE | 2017-07-08 12:30 | PN ---
Progress Note - Progress Note Date of Service: 07/08/17 SOAP: Subjective: []Patient seen at bedside. She feels well and desires discharge home. RUE pain is quite tolerable. No current pelvic or hip pain. Denies CP, SOB, dizziness or nausea. Objective: [] Vital Signs Temp 98.1 F 07/08/17 07:31 Pulse 88 07/08/17 11:43 Resp 18 07/08/17 11:43 BP 124/47 07/08/17 11:43 Pulse Ox 92 07/08/17 11:43 Intake & Output 07/07/17 07/08/17 07/08/17 18:59 06:59 18:59 Intake Total 430 1293 Output Total 600 300 Balance -170 993 Intake: IV Fluids 193 ABX - ZOSYN 193 IVPB 110 ABX - ZOSYN 110 Oral 320 1100 Output: Urine 600 300 Other: Estimated Void Medium Small Medium # Bowel Movements 0 # Voids 1 1 1 Laboratory Last Values WBC 5.5 10^3/ul (3.5-10.8) 07/07/17 05:05 RBC 3.68 10^6/ul (4.0-5.4) L 07/07/17 05:05 Hgb 11.6 g/dl (12.0-16.0) L 07/07/17 05:05 Hct 34 % (35-47) L 07/07/17 05:05 MCV 93 fL (80-97) 07/07/17 05:05 MCH 32 pg (27-31) H 07/07/17 05:05 MCHC 34 g/dl (31-36) 07/07/17 05:05 RDW 17 % (10.5-15) H 07/07/17 05:05 Plt Count 77 10^3/ul (150-450) L 07/07/17 05:05 MPV 8.6 um3 (7.4-10.4) 07/07/17 05:05 Neut % (Auto) 54.2 % (38-83) 07/07/17 05:05 Lymph % (Auto) 35.3 % (25-47) 07/07/17 05:05 Gregory % (Auto) 8.6 % (0-7) H 07/07/17 05:05 Eos % (Auto) 1.5 % (0-6) 07/07/17 05:05 Baso % (Auto) 0.4 % (0-2) 07/07/17 05:05 Absolute Neuts (auto) 3.0 10^3/ul (1.5-7.7) 07/07/17 05:05 Absolute Lymphs (auto) 1.9 10^3/ul (1.0-4.8) 07/07/17 05:05 Absolute Monos (auto) 0.5 10^3/ul (0-0.8) 07/07/17 05:05 Absolute Eos (auto) 0.1 10^3/ul (0-0.6) 07/07/17 05:05 Absolute Basos (auto) 0 10^3/ul (0-0.2) 07/07/17 05:05 Absolute Nucleated RBC 0 10^3/ul 07/07/17 05:05 Nucleated RBC % 0.1 07/07/17 05:05 Hem Pathologist Commnt 07/05/17 13:35 Sodium 135 mmol/L (139-145) L 07/07/17 05:05 Potassium 3.8 mmol/L (3.5-5.0) 07/07/17 05:05 Chloride 104 mmol/L (101-111) 07/07/17 05:05 Carbon Dioxide 28 mmol/L (22-32) 07/07/17 05:05 Anion Gap 3 mmol/L (2-11) 07/07/17 05:05 BUN 8 mg/dL (6-24) 07/07/17 05:05 Creatinine 0.55 mg/dL (0.51-0.95) 07/07/17 05:05 Est GFR ( Amer) 140.5 (>60) 07/07/17 05:05 Est GFR (Non-Af Amer) 109.3 (>60) 07/07/17 05:05 BUN/Creatinine Ratio 14.5 (8-20) 07/07/17 05:05 Glucose 121 mg/dL (70-100) H 07/07/17 05:05 Calcium 8.8 mg/dL (8.6-10.3) 07/07/17 05:05 Total Bilirubin 1.60 mg/dL (0.2-1.0) H 05/27/18 13:35 AST 44 U/L (13-39) H 07/05/17 13:35 ALT 15 U/L (7-52) 07/05/17 13:35 Alkaline Phosphatase 116 U/L (34-104) H 07/05/17 13:35 Total Protein 6.4 g/dL (6.4-8.9) 07/05/17 13:35 Albumin 3.0 g/dL (3.2-5.2) L 07/05/17 13:35 Globulin 3.4 g/dL (2-4) 07/05/17 13:35 Albumin/Globulin Ratio 0.9 (1-3) L 07/05/17 13:35 Gen: A&Ox3, NAD at rest sitting in bed RUE: Short arm cast in place, CDI, no skin breakdown at periphery. +flexion and extension at digits, sensation intact distally, capillary refill less than two seconds distally. BL LE with good flexion/ extension at hip, knee and ankle. Calves supple and nontender without erythema or edema. Assessment: SP Right distal radius/ulna ORIF, non-op pubic ramus fx Plan: DC home when platform walker has arrived. More stable with PT today. Will DC home on augmentin Continue PT/OT
[2017-07-08 16:25] VITALS: BP 126/65
--- NOTE | 2017-07-09 12:53 | RAD ---
INDICATION: Right wrist ORIF, status post fall COMPARISONS: None relevant TECHNIQUE: Fluoroscopy was provided for a surgical procedure. Total fluoroscopy time is: 3 minutes, 35 seconds FINDINGS: Multiple spot images of the straight internal fixation of the distal radius and ulna. IMPRESSION: FLUOROSCOPY WAS PROVIDED FOR A SURGICAL PROCEDURE CPT II Codes: G9500
--- NOTE | 2017-07-09 13:02 | DS ---
AMENDED REPORT NOW INCLUDES COSIGNER DESIGNATION - ESIGNED BEFORE ADJUSTMENT DATE OF DISCHARGE NOW INCLUDED ON THIS REPORT DISCHARGE SUMMARY: DATE OF ADMISSION: DATE OF DISCHARGE: 07/08/17 PROVIDER: Dr. Pepe Griffith.* (DICTATED BY BONITA KEYES) SALES CLERK: BONITA Seo SURGEON: Pepe Griffith MD. PREOPERATIVE DIAGNOSES: Right distal radius fracture, displaced right distal ulnar fracture, displaced comminuted along the ulnar neck, ulnar styloid process , and ulnar head. POSTOPERATIVE DIAGNOSES: Right distal radius fracture, displaced right distal ulnar fracture, displaced comminuted along the ulnar neck, ulnar styloid process , and ulnar head. OPERATIVE PROCEDURE: ORIF, right distal radius fracture, extraarticular ORIF, right distal ulnar fracture including ulnar shaft, neck, head, ulnar styloid process. HISTORY: Ms. Cruz was seen originally at [facility]. She was diagnosed with a distal radius fracture and an ulnar neck fracture with ulnar styloid process fracture. In the clinic, she was placed into a cast and surgical procedure was scheduled. HOSPITAL COURSE: The patient was admitted at [facility] on . She underwent an ORIF, right distal radius fracture extraarticular, and an ORIF right distal ulnar fracture including ulnar shaft, neck, head, and ulnar styloid process without complication. While recovering in PACU using the bathroom, the patient sustained a fall, subsequently suffering a nondisplaced right superior rami fracture. The right wrist was x-rayed and showed no new injury. The patient was therefore admitted to [facility]. On postop day 4, it was noted that her splint had become quite loose due to decreased swelling, this was replaced with a short-arm cast. The patient tolerated the procedure well. The incision appeared clean, dry, and intact without any erythema or swelling had significantly reduced in the extremity. The patient had good range of motion, flexion, and extension of all 5 digits. She had sensation intact intact to all 5 digits. Radial pulses 2+ and capillary refill was less than 2 seconds distally. On postop day 5, the patient is well appearing in no acute distress. Her cast was comfortable. She was wiggle all fingers. Sensation was intact throughout. All 5 digits capillary refill less than 2 seconds. Hemoglobin of 11.6, hematocrit 34. Vital Signs: Temp 98.1, pulse 88, respiratory rate 18, blood pressure 124/47, and pulse ox 92%. The patient deemed to be medically and orthopedically stable for discharge home. During her stay she was also seen by hospitalist service and diagnosed with possible aspiration and positive pneumonia which was treated with Zosyn and recommended as an outpatient to treat with Augmentin. DISCHARGE MEDICATIONS: Include: 1. Clonapam 0.5 mg p.o. b.i.d. 2. Zolpidem 5 mg p.o. at bedtime. 3. Prevacid 30 mg p.o. q. p.m. 4. Cyclobenzaprine 10 mg p.o. q.8 hours p.r.n. 5. Valacyclovir 500 mg p.o. b.i.d. 6. Augmentin 875 mg p.o. b.i.d. for 14 days. 7. Aspirin 325 mg p.o. daily. 8. Docusate 100 mg p.o. b.i.d. 9. Oxycodone 5 mg p.o. q.4 hours p.r.n., max daily dose of 6. DISCHARGE PLAN: The patient will keep her cast clean, dry, and intact. She will be nonweightbearing on the right upper extremity. She may bear weight on her lower extremities as tolerated. She will use a platform walker to mobilize. For pain she will use oxycodone 5 mg tabs 1 to 2 tabs every 4 to 6 hours as needed for pain with a max of 6 tablets per day, Augmentin 875 one tablet every 12 hours for 7 days, aspirin 325 one tab p.o. daily for [address] Griffith in 7 to 10 days postop, call for an appointment. BONITA KEYES [id number]/[facility] #: [id number] [id number]
== END 2017-07-08 17:20 | disposition home health service (06) | DRG 510 ==
LOC: OR 09:16 → SSU 15:35 → OBSVTOIN 07-05 15:35
PROVIDERS: ADMIT Orthopaedic Surgery; ATTEND Orthopaedic Surgery
PROC: 0PSH04Z Reposition Right Radius with Internal Fixation Device, Open Approach (ICD-10-PCS; principal; 2017-07-05)
PROC: 0PSK04Z Reposition Right Ulna with Internal Fixation Device, Open Approach (ICD-10-PCS; 2017-07-05)
DX: S52.611A Displaced fracture of right ulna styloid process, initial encounter for closed fracture (principal); J69.0 Pneumonitis due to inhalation of food and vomit; R44.0 Auditory hallucinations; S32.511A Fracture of superior rim of right pubis, initial encounter for closed fracture; S52.501A Unspecified fracture of the lower end of right radius, initial encounter for closed fracture; W17.89XA Other fall from one level to another, initial encounter; G89.29 Other chronic pain; M17.11 Unilateral primary osteoarthritis, right knee; F17.210 Nicotine dependence, cigarettes, uncomplicated; J43.9 Emphysema, unspecified; F41.9 Anxiety disorder, unspecified; Z96.642 Presence of left artificial hip joint; K21.9 Gastro-esophageal reflux disease without esophagitis; R09.02 Hypoxemia; R41.0 Disorientation, unspecified; Z72.89 Other problems related to lifestyle; Z80.1 Family history of malignant neoplasm of trachea, bronchus and lung; Z82.5 Family history of asthma and other chronic lower respiratory diseases; Z81.2 Family history of tobacco abuse and dependence; Y92.9 Unspecified place or not applicable; Z90.711 Acquired absence of uterus with remaining cervical stump; Z98.1 Arthrodesis status; Z98.42 Cataract extraction status, left eye; Z98.41 Cataract extraction status, right eye; Z88.5 Allergy status to narcotic agent; Z91.040 Latex allergy status; Z79.82 Long term (current) use of aspirin
CPT/HCPCS: 36415; 71275; 76000; 80048; 80053; 85025; 85060; 94640; A9270-GY; C1713; C1776; G0378; G8978-GP-CL; G8979-GP-CJ; J0690; J0696; J1100; J1644; J2250; J2543; J2704; J2795; J3010; J3490; Q9967

== ENCOUNTER 2018-04-29 09:55 | Inpatient (IN) | payer MEDICARE ==
[2018-04-29] MEDS ORDERED: Magnesium Hydroxide LIQ* 30 ML UDC PO PRN (17:55)
[2018-04-29] MEDS ORDERED: Bisacodyl SUPP* 10 MG SUPP PR PRN (17:55)
[2018-04-29] MEDS ORDERED: Senna TAB PO PRN (17:55)
[2018-04-29] MEDS ORDERED: Phytonadione Oral Solution* 5 MG/25 ML UDC PO ONE (18:05)
--- NOTE | 2018-04-29 19:41 | HP ---
ADMISSION HISTORY AND PHYSICAL: DATE OF ADMISSION: 04/29/18 REASON FOR ADMISSION: Right total knee replacement. HISTORY OF ILLNESS: Ana Cruz is a 72-year-old female. She has a medical history significant for COPD as well as alcoholic cirrhosis. She gave up drinking about a year ago, but formerly drank quite heavily. In addition, she is a pack a day smoker and has been for about 50 years. The patient had significant pain in her right knee. She had seen Dr. Merchant. She had x-rays taken showing significant advanced osteoarthritis of the right knee. She had tried and failed conservative treatment. It was decided the best course of action would be for her to have a right total knee replacement. She was admitted to [facility] on 04/26/18 and underwent a total knee replacement that day. Postoperatively, the patient had a supratherapeutic INR. She has also had mental status changes consistent with confusion. It was felt perhaps that she might have hepatic encephalopathy from her chronic liver disease and was started on lactulose. Her ammonia level was tested twice and was 60 on 04/28/18 and then 97 on 04/29/18. She was started on lactulose. The patient was felt to have physical therapy and occupational therapy needs. She was slow to mobilize. She is now being admitted for inpatient rehab, so that she might return to independent living. PAST MEDICAL HISTORY: Significant for the aforementioned alcoholic cirrhosis as well as COPD. She has a history of anxiety and history of depression. CURRENT MEDICATIONS: Include: 1. Tramadol for pain. 2. She is on an albuterol inhaler. 3. Protonix. 4. Cymbalta. 5. Klonopin. 6. She was on Coumadin, but again her INR was 7 this morning, so her Coumadin has been on hold. Her Coumadin was over 4 yesterday. She did not receive Coumadin yesterday either. ALLERGIES: The patient has allergies to FENTANYL, LASIX, ACETAMINOPHEN, and HYDROCODONE. SOCIAL HISTORY: She lives with her sister in a 2-shelia house, but she stays largely on one level. She is a smoker, does smoke half a pack to a pack a day and denies any alcohol use. REVIEW OF SYSTEMS: The patient reports no current shortness of breath or chest pain. PHYSICAL EXAMINATION VITAL SIGNS: The patient's temperature is 98.1, blood pressure is 101/48, pulse is 91, respirations 20. HEENT: Her extraocular movements were intact. Tongue is midline. NECK: Supple. LUNGS: Sounded mostly clear to auscultation. There were scattered wheezes. HEART: Heart sounds were regular. S1 and S2 were audible. ABDOMEN: Soft and nontender. EXTREMITIES: Her right knee has a wound which is clean and dry. Trace edema in the right foot. There was swelling in the right leg compared to the left. NEUROLOGIC: The patient was alert, oriented to herself and place. Muscle strength was about 5/5 in her upper extremities, left lower extremity was 5/5, right lower extremity was 3/5 secondary to pain. FUNCTIONAL EXAM: She transfers with minimal amount of assistance. ASSESSMENT: 1. Right total knee replacement. 2. Alcoholic cirrhosis. PLAN: Integrate her into a comprehensive and therapeutic rehab program with the following goals: 1. Physical Therapy will work with the patient. They are going to work on functional transfer training, ambulation training with a walker. 2. Occupational Therapy will see the patient, work on her activities of daily living including toileting and toilet transfers. 3. We are going to stop her Coumadin for DVT prophylaxis. When INR drifts down to below 2, we will start her on Lovenox. Given her liver failure, I do not think Coumadin is the right medication for her. 4. Adequate analgesia. We will continue tramadol and Tylenol. 5. For her COPD, we are going to continue her albuterol inhaler as well as her Stiolto inhaler. 6. Her bowels will be regulated. 7. library services dean will be closely involved to make sure that any services and equipment the patient requires are in place prior to discharge. 8. We are going to give 1 dose of vitamin K tonight because of her INR being so elevated. 9. Family training as appropriate. 10. Home with appropriate services. ESTIMATED LENGTH OF STAY: 7 to 10 days. [id number]/[facility] #: [id number] THAIS
[2018-04-29] MEDS: Pantoprazole TAB * 40 MG TAB PO SCH (21:24)
[2018-04-29] MEDS: clonazePAM TAB(*) 0.5 MG PO SCH (21:24)
[2018-04-29] MEDS: traMADol TAB* 50 MG PO PRN (23:21)
[2018-04-30] MEDS: Albuterol HFA INHALER* 8 gm MDI INH PRN ×2 (03:23→10:56)
[2018-04-30 07:10] LABS: INR 2.47 (0.77-1.02)
[2018-04-30 07:12] LABS: Hematocrit 29 % (33-41); Hemoglobin 9.8 g/dL (12.0-16.0); Mean Corpuscular HGB Conc 34 g/dL (31-36); Mean Corpuscular Hemoglobin 31 pg (27-31); Mean Corpuscular Volume 93 fL (80-97); Red Blood Count 3.12 10^6 /uL (3.70-4.87); Red Cell Distribution Width 16 % (10.5-15); White Blood Count 4.5 10^3/uL (3.5-10.8)
[2018-04-30 07:16] LABS: Albumin 2.8 g/dL (3.2-5.2); BUN/Creatinine Ratio 20.5 (8-20); Calcium 7.7 mg/dL (8.6-10.3); Globulin 2.8 g/dL (2-4); Potassium 3.8 mmol/L (3.5-5.0); Total Bilirubin 1.6 mg/dL (0.2-1.0); Total Protein 5.6 g/dL (6.4-8.9)
[2018-04-30 08:11] LABS: ABS Basophils 0 10^3/ul (0-0.2); ABS Eosinophils 0.1 10^3/ul (0-0.6); ABS Lymphocytes 1.4 10^3/ul (1.0-4.8); ABS Monocytes 0.4 10^3/ul (0-0.8); ABS Neutrophils 2.6 10^3/ul (1.5-7.7); ABS Nucleated RBC 0 10^3/ul; Eosinophil % 2.5 %; Lymphocyte % 30.1 %; Nucleated Red Blood Cells % 0.1; Platelet Count 80 10^3/uL (150-450)
[2018-04-30] MEDS: DULoxetine DR CAP* 30 MG CAP.DR PO SCH (08:34)
[2018-04-30] MEDS: traMADol TAB* 50 MG PO PRN ×2 (08:34→16:56)
[2018-04-30] MEDS: Tiotropium Brom/Olodaterol(NF) 4 GM 60 PUFF MDI INH SCH (09:32)
--- NOTE | 2018-04-30 12:42 | PMRUTEAM ---
PMRU: Team Meeting Current Status: Nursing: Current Status Skin Deviations [Right dorsal Bruise hand] Skin Deviations [Right outer Bruise lower leg] Skin Deviations [Right Knee] Incision Physical Therapy: Current Status Bed Mobility Assistance Supervision Transfer Mobility Assistance Contact Guard Assist Ambulation Assistance Contact Guard 100 feet Ambulation Assistive Devices Rolling Walker STAIRS: NT Occupational Therapy: Current Status Upper Body Dressing Independent Lower Body Dressing Supervision Bathing Supervision Toileting Ind with Adaptive Equip Toilet Transfer Supervision Eating Independent Social Work: Current Status Discharge Plan return home with home care services and family support Potential for Family Training TBD Anticipated Discharge Home Destination Discharge With home care svs and family support Goals: Occupational Therapy: Initial Goals Goals to be Completed in (Days 1-2 days ) Upper Body Bathing Routine Modified Independent with Lower Body Bathing Routine Modified Independent with Upper Body Dressing Routine Independent Lower Body Dressing Routine Independent Toilet Hygeine and Clothing Modified Independent with Management Routine Toilet Transfer Routine Modified Independent with Step-In Shower Transfer Modified Independent with Routine Functional Transfers for ADL Modified Independent with Grooming Routine Independent Feeding Routine Independent Light Housekeeping Tasks Minimal Contact Assist Social Work: Goals Discharge Plan return home with home care services and family support Potential for Family Training TBD Anticipated Discharge Home Destination Discharge With home care svs and family support Care Plan: Care Plan Education-Improve/Maintain Start: 04/29/18 22:23 Freq: QSHIFT Status: Active Target: Protocol: Activity Type Activity Date Activity User E-Sign Co-Sign Detail Recorded Client Recorded Date Recorded By Document 04/30/18 08:00 [id number] 04/30/18 10:20 [id number] 04/30/18 08:00 PMRU Outcome: Education Outcome/Goals Demonstrate/ Verbalize Understanding of Written Discharge Instructions Encourage Questions Progression Toward Outcome/Goals Progressing /GI-Improve/Maintain Start: 04/29/18 22:23 Freq: QSHIFT Status: Active Target: Protocol: Activity Type Activity Date Activity User E-Sign Co-Sign Detail Recorded Client Recorded Date Recorded By Document 04/30/18 08:00 [id number] 04/30/18 10:20 [id number] 04/30/18 08:00 PMRU Outcome: Genitourinary/ Gastrointestinal Genitourinary- Outcome/Goals Remain Free of Hospital- Acquired UTI Gastrointestinal-Outcome/Goals Maintain/ Achieve Bowel Regularity in Accordance with Pt's Baseline Progression Toward Outcome/Goals - Progressing Progression Toward Outcome/Goals - GI Progressing Neurological- Improve/Maintain Start: 04/29/18 22:23 Freq: QSHIFT Status: Active Target: Protocol: Activity Type Activity Date Activity User E-Sign Co-Sign Detail Recorded Client Recorded Date Recorded By Document 04/30/18 08:00 [id number] 04/30/18 10:20 [id number] 04/30/18 08:00 PMRU Outcome: Neurological Weakness/Aphasia Weakness Right Side Outcome/Goals Maintain/ Achieve Baseline Neurological Status Improve Neurological Status Maintain/ Improve Strength/ROM Progression Toward Outcome/Goals Progressing Pain/Comfort- Improve/Maintain Start: 04/29/18 22:23 Freq: QSHIFT Status: Active Target: Protocol: Activity Type Activity Date Activity User E-Sign Co-Sign Detail Recorded Client Recorded Date Recorded By Document 04/30/18 08:00 [id number] 04/30/18 10:20 [id number] 04/30/18 08:00 PMRU Outcome: Pain/Comfort Outcome/Goals Demonstrates Knowledge and Use of Available Comfort Measures Achieves Acceptable Comfort/Pain Level as Determined by Patient/Condit Maintain Comfort Level Allowing Patient to Fully Participate in Rehab Progression Toward Outcome/Goals Progressing Respiratory - Improve/Maintain Start: 04/29/18 22:23 Freq: QSHIFT Status: Active Target: Protocol: Activity Type Activity Date Activity User E-Sign Co-Sign Detail Recorded Client Recorded Date Recorded By Document 04/30/18 08:00 [id number] 04/30/18 10:20 [id number] 04/30/18 08:00 PMRU Outcome: Respiratory Does Patient Have a Trach No Outcome/Goals Maintain/ Improve Baseline Respiratory Status Prevent Pneumonia/ Atelectasis Progression Toward Outcome/Goals Progressing Safety- Improve/Maintain Start: 04/29/18 22:23 Freq: QSHIFT Status: Active Target: Protocol: Activity Type Activity Date Activity User E-Sign Co-Sign Detail Recorded Client Recorded Date Recorded By Document 04/30/18 08:00 [id number] 04/30/18 10:20 [id number] 04/30/18 08:00 PMRU Outcome: Safety Outcome/Goals Remain Free of Injury or Harm Cooperates with Safety Measures for Least Restrictive Environment Prevent Falls/ Injury Progression Toward Outcome/Goals Progressing Medicine Note: Length of Stay: 4 days Anticipated Discharge Destination: Home Tentative Discharge Date: 05/04/18 Discharged to: Home
--- NOTE | 2018-04-30 19:48 | PN ---
Progress Note Date of Service: 04/30/18 Note: HEAVEN MCCRAY was visited. Therapy notes read and reviewed. She was discussed in interdisciplinary plan of care rounds. She is doing well. Her thinking is better at some times than others. I have asked [employer] to see. INR normalized. Current Medications: Active Medications Generic Name Dose Route Start Last Admin Trade Name Freq PRN Reason Stop Dose Admin Albuterol 2 puff 04/29/18 18:11 04/30/18 10:56 Ventolin Hfa Inhaler* INH 2 puff Q6H PRN Administration SOB/WHEEZING Bisacodyl 10 mg 04/29/18 17:55 Dulcolax Supp* [place] DAILY PRN CONSTIPATION Clonazepam 0.5 mg 04/29/18 21:00 04/29/18 21:24 Klonopin Tab(*) PO 0.5 mg BEDTIME PIO Administration Duloxetine HCl 30 mg 04/30/18 09:00 04/30/18 08:34 Cymbalta Cap* PO 30 mg DAILY PIO Administration Lactulose 15 ml 04/29/18 21:00 04/30/18 08:34 Lactulose* PO 15 ml Q12H PIO Administration Magnesium Hydroxide 30 ml 04/29/18 17:55 Milk Of Magnesia Liq* PO Q6H PRN CONSTIPATION Pantoprazole Sodium 40 mg 04/29/18 21:00 04/29/18 21:24 Protonix Tab* PO 40 mg 2100 PIO Administration Senna 2 tab 04/29/18 17:55 Senokot Tab* PO BEDTIME PRN CONSTIPATION Tiotropium [place]/Olodaterol 2 puff 04/30/18 09:00 04/30/18 09:32 Stiolto Respimat Inh [place] (60 Puff)(Nf) INH Not Given DAILY PIO Tramadol HCl 50 mg 04/29/18 18:10 04/30/18 16:56 Ultram* PO 50 mg Q6H PRN Administration PAIN - MODERATE TO SEVERE Vital Signs: Vital Signs Temp Pulse Resp BP Pulse Ox 98.5 F 91 18 86/72 97 04/30/18 15:16 04/30/18 15:16 04/30/18 16:56 04/30/18 15:16 04/30/18 15:16 Lab Results: Laboratory Results - last 24 hr 04/30/18 04/30/18 04/30/18 06:26 06:26 06:26 WBC 4.5 RBC 3.12 L Hgb 9.8 L Hct 29 L MCV 93 MCH 31 MCHC 34 RDW 16 H Plt Count 80 L MPV 9.0 Neut % (Auto) 58.1 Lymph % (Auto) 30.1 [place] % (Auto) 9.1 Eos % (Auto) 2.5 Baso % (Auto) 0.2 Absolute Neuts (auto) 2.6 Absolute Lymphs (auto) 1.4 Absolute Monos (auto) 0.4 Absolute Eos (auto) 0.1 Absolute Basos (auto) 0 Absolute Nucleated RBC 0 Nucleated RBC % 0.1 INR (Anticoag Therapy) 2.47 H Sodium 138 Potassium 3.8 Chloride 107 Carbon Dioxide 28 Anion Gap 3 BUN 8 Creatinine 0.39 L Est GFR ( Amer) 196.0 Est GFR (Non-Af Amer) 162.0 BUN/Creatinine Ratio 20.5 H Glucose 75 Calcium 7.7 L Total Bilirubin 1.60 H AST 42 H ALT 18 Alkaline Phosphatase 135 H Total Protein 5.6 L Albumin 2.8 L Globulin 2.8 Albumin/Globulin Ratio 1.0 Exam: GENERAL: Alert, no distress LUNGS: Clear bilaterally HEART: regular rhythm ABDOMEN: Soft, +BS EXTREMITIES: right knee wound C/D/I NEUROLOGIC: A&O; sensation intact. Motor strength 5/5 except right leg Assessment/Plan: 1. Right TKA: WBAT. Follow up with Dr. Merchant. PT/OT. 2. Liver Cirrhosis: Check Ammonia tomorrow. Continue Lactulose 3. COPD: Albuterol HFA/Tiotropium 4. DVT Prophylaxis: Given liver problems, will hold Coumadin and use Lovenox 5. Advanced Directives: Has MOLST; DNR 04/30/18 19:49 04/30/18 19:51
[2018-04-30] MEDS: Pantoprazole TAB * 40 MG TAB PO SCH (21:23)
[2018-04-30] MEDS: clonazePAM TAB(*) 0.5 MG PO SCH (21:23)
[2018-05-01] MEDS: traMADol TAB* 50 MG PO PRN ×3 (01:10→17:43)
[2018-05-01 05:16] LABS: INR 1.65 (0.77-1.02)
[2018-05-01] MEDS: DULoxetine DR CAP* 30 MG CAP.DR PO SCH (08:15)
[2018-05-01] MEDS: Tiotropium Brom/Olodaterol(NF) 4 GM 60 PUFF MDI INH SCH (10:32)
--- NOTE | 2018-05-01 15:41 | PN ---
Progress Note Date of Service: 05/01/18 Note: HEAVEN MCCRAY was visited. Therapy notes read and reviewed. She complains of diarrhea from the Lactulose. Her ammonia level is down, may cut back. Current Medications: Active Medications Generic Name Dose Route Start Last Admin Trade Name Freq PRN Reason Stop Dose Admin Albuterol 2 puff 04/29/18 18:11 04/30/18 10:56 Ventolin Hfa Inhaler* INH 2 puff Q6H PRN Administration SOB/WHEEZING Bisacodyl 10 mg 04/29/18 17:55 Dulcolax Supp* [place] DAILY PRN CONSTIPATION Clonazepam 0.5 mg 04/29/18 21:00 04/30/18 21:23 Klonopin Tab(*) PO 0.5 mg BEDTIME PIO Administration Duloxetine HCl 30 mg 04/30/18 09:00 05/01/18 08:15 Cymbalta Cap* PO 30 mg DAILY PIO Administration Enoxaparin Sodium 40 mg 05/02/18 09:00 Lovenox(*) SUBCUT Q24H PIO Lactulose 15 ml 04/29/18 21:00 05/01/18 10:22 Lactulose* PO 15 ml Q12H PIO Administration Magnesium Hydroxide 30 ml 04/29/18 17:55 Milk Of Magnesia Liq* PO Q6H PRN CONSTIPATION Pantoprazole Sodium 40 mg 04/29/18 21:00 04/30/18 21:23 Protonix Tab* PO 40 mg 2100 PIO Administration Senna 2 tab 04/29/18 17:55 Senokot Tab* PO BEDTIME PRN CONSTIPATION Tiotropium [place]/Olodaterol 2 puff 04/30/18 09:00 05/01/18 10:32 Stiolto Respimat Inh [place] (60 Puff)(Nf) INH Not Given DAILY PIO Tramadol HCl 50 mg 04/29/18 18:10 05/01/18 08:14 Ultram* PO 50 mg Q6H PRN Administration PAIN - MODERATE TO SEVERE Vital Signs: Vital Signs Temp Pulse Resp BP Pulse Ox 98.6 F 84 16 120/57 96 05/01/18 05:07 05/01/18 05:07 05/01/18 14:04 05/01/18 05:07 05/01/18 05:07 Lab Results: Laboratory Results - last 24 hr 05/01/18 05/01/18 05:01 05:01 INR (Anticoag Therapy) 1.65 H Ammonia 63 H Exam: GENERAL: Alert, no distress LUNGS: Clear bilaterally HEART: regular rhythm ABDOMEN: Soft, +BS EXTREMITIES: right knee wound C/D/I NEUROLOGIC: A&O; sensation intact. Motor strength 5/5 except right leg Assessment/Plan: 1. Right TKA: WBAT. Follow up with Dr. Merchant. PT/OT. 2. Liver Cirrhosis: Ammonia down to 63. Continue Lactulose, may drop to once a day 3. COPD: Albuterol HFA/Tiotropium 4. DVT Prophylaxis: Given liver problems, will d/c Coumadin and start Lovenox 5. Advanced Directives: Raul MOLST; DNR 05/01/18 15:42 05/01/18 15:43
[2018-05-01] MEDS: Pantoprazole TAB * 40 MG TAB PO SCH (21:04)
[2018-05-01] MEDS: clonazePAM TAB(*) 0.5 MG PO SCH (21:04)
[2018-05-02] MEDS: traMADol TAB* 50 MG PO PRN ×3 (00:45→19:45)
[2018-05-02] MEDS: Tiotropium Brom/Olodaterol(NF) 4 GM 60 PUFF MDI INH SCH (07:08)
[2018-05-02] MEDS: DULoxetine DR CAP* 30 MG CAP.DR PO SCH (08:45)
[2018-05-02] MEDS: Enoxaparin(*) 40 MG/0.4 ML SYR SUBCUT SCH (08:46)
--- NOTE | 2018-05-02 15:16 | PN ---
Progress Note Date of Service: 05/02/18 Note: HEAVEN MCCRAY was visited. Therapy notes read and reviewed. She seems clear to me but her daughter thinks her speech is slightly slurred. She was coherent with me. Current Medications: Active Medications Generic Name Dose Route Start Last Admin Trade Name Freq PRN Reason Stop Dose Admin Albuterol 2 puff 04/29/18 18:11 04/30/18 10:56 Ventolin Hfa Inhaler* INH 2 puff Q6H PRN Administration SOB/WHEEZING Bisacodyl 10 mg 04/29/18 17:55 Dulcolax Supp* [place] DAILY PRN CONSTIPATION Clonazepam 0.5 mg 04/29/18 21:00 05/01/18 21:04 Klonopin Tab(*) PO 0.5 mg BEDTIME PIO Administration Duloxetine HCl 30 mg 04/30/18 09:00 05/02/18 08:45 Cymbalta Cap* PO 30 mg DAILY PIO Administration Enoxaparin Sodium 40 mg 05/02/18 09:00 05/02/18 08:46 Lovenox(*) SUBCUT 40 mg Q24H PIO Administration Lactulose 15 ml 04/29/18 21:00 05/02/18 08:46 Lactulose* PO 15 ml Q12H PIO Administration Magnesium Hydroxide 30 ml 04/29/18 17:55 Milk Of Magnesia Liq* PO Q6H PRN CONSTIPATION Pantoprazole Sodium 40 mg 04/29/18 21:00 05/01/18 21:04 Protonix Tab* PO 40 mg 2100 PIO Administration Senna 2 tab 04/29/18 17:55 Senokot Tab* PO BEDTIME PRN CONSTIPATION Tiotropium [place]/Olodaterol 2 puff 04/30/18 09:00 05/02/18 07:08 Stiolto Respimat Inh [place] (60 Puff)(Nf) INH Not Given DAILY PIO Tramadol HCl 50 mg 04/29/18 18:10 05/02/18 08:46 Ultram* PO 50 mg Q6H PRN Administration PAIN - MODERATE TO SEVERE Vital Signs: Vital Signs Temp Pulse Resp BP Pulse Ox 98.6 F 88 16 121/52 96 05/02/18 05:41 05/02/18 05:41 05/02/18 14:29 05/02/18 05:41 05/02/18 05:41 Exam: GENERAL: Alert, no distress LUNGS: Clear bilaterally HEART: regular rhythm ABDOMEN: Soft, +BS EXTREMITIES: right knee wound C/D/I NEUROLOGIC: A&O; sensation intact. Motor strength 5/5 except right leg Assessment/Plan: 1. Right TKA: WBAT. Follow up with Dr. Merchant. PT/OT. 2. Liver Cirrhosis: Ammonia down to 63. Continue Lactulose, may drop to once a day. ? Xifaxin 3. COPD: Albuterol HFA/Tiotropium 4. DVT Prophylaxis: Given liver problems, have stopped Coumadin and started Lovenox 5. Advanced Directives: Has MOLST; DNR 05/02/18 15:16
[2018-05-02] MEDS: clonazePAM TAB(*) 0.5 MG PO SCH (20:45)
[2018-05-02] MEDS: Pantoprazole TAB * 40 MG TAB PO SCH (20:46)
[2018-05-03] MEDS: traMADol TAB* 50 MG PO PRN ×4 (01:55→21:07)
[2018-05-03] MEDS: DULoxetine DR CAP* 30 MG CAP.DR PO SCH (08:28)
[2018-05-03] MEDS: Enoxaparin(*) 40 MG/0.4 ML SYR SUBCUT SCH (08:29)
[2018-05-03] MEDS: Tiotropium Brom/Olodaterol(NF) 4 GM 60 PUFF MDI INH SCH (09:38)
--- NOTE | 2018-05-03 17:57 | PN ---
Progress Note Date of Service: 05/03/18 Note: HEAVEN MCCRAY was visited. Therapy notes read and reviewed. She is excited about going home tomorrow. Will check ammonia level in am Current Medications: Active Medications Generic Name Dose Route Start Last Admin Trade Name Freq PRN Reason Stop Dose Admin Albuterol 2 puff 04/29/18 18:11 04/30/18 10:56 Ventolin Hfa Inhaler* INH 2 puff Q6H PRN Administration SOB/WHEEZING Bisacodyl 10 mg 04/29/18 17:55 Dulcolax Supp* [place] DAILY PRN CONSTIPATION Clonazepam 0.5 mg 04/29/18 21:00 05/02/18 20:45 Klonopin Tab(*) PO 0.5 mg BEDTIME PIO Administration Duloxetine HCl 30 mg 04/30/18 09:00 05/03/18 08:28 Cymbalta Cap* PO 30 mg DAILY PIO Administration Enoxaparin Sodium 40 mg 05/02/18 09:00 05/03/18 08:29 Lovenox(*) SUBCUT 40 mg Q24H PIO Administration Lactulose 15 ml 05/03/18 09:00 05/03/18 08:28 Lactulose* PO 15 ml Q24H PIO Administration Magnesium Hydroxide 30 ml 04/29/18 17:55 Milk Of Magnesia Liq* PO Q6H PRN CONSTIPATION Pantoprazole Sodium 40 mg 04/29/18 21:00 05/02/18 20:46 Protonix Tab* PO 40 mg 2100 PIO Administration Senna 2 tab 04/29/18 17:55 Senokot Tab* PO BEDTIME PRN CONSTIPATION Tiotropium [place]/Olodaterol 2 puff 04/30/18 09:00 05/03/18 09:38 Stiolto Respimat Inh [place] (60 Puff)(Nf) INH Not Given DAILY PIO Tramadol HCl 50 mg 04/29/18 18:10 05/03/18 14:42 Ultram* PO 50 mg Q6H PRN Administration PAIN - MODERATE TO SEVERE Vital Signs: Vital Signs Temp Pulse Resp BP Pulse Ox 98.6 F 93 18 105/41 97 05/03/18 16:17 05/03/18 16:17 05/03/18 16:42 05/03/18 16:17 05/03/18 16:17 Exam: GENERAL: Alert, no distress LUNGS: Clear bilaterally HEART: regular rhythm ABDOMEN: Soft, +BS EXTREMITIES: right knee wound C/D/I NEUROLOGIC: A&O; sensation intact. Motor strength 5/5 except right leg Assessment/Plan: 1. Right TKA: WBAT. Follow up with Dr. Merchant. PT/OT. 2. Liver Cirrhosis: Ammonia down to 63. Check in am Continue Lactulose, dropped to once a day. ? Xifaxin 3. COPD: Albuterol HFA/Tiotropium 4. DVT Prophylaxis: Lovenox 5. Advanced Directives: Has MOLST; DNR 05/03/18 17:57
[2018-05-03] MEDS: Pantoprazole TAB * 40 MG TAB PO SCH (21:07)
[2018-05-03] MEDS: clonazePAM TAB(*) 0.5 MG PO SCH (21:07)
[2018-05-04] MEDS: traMADol TAB* 50 MG PO PRN (03:52)
[2018-05-04 06:13] VITALS: BP 118/51
[2018-05-04] MEDS: Tiotropium Brom/Olodaterol(NF) 4 GM 60 PUFF MDI INH SCH (07:57)
[2018-05-04] MEDS: Enoxaparin(*) 40 MG/0.4 ML SYR SUBCUT SCH (08:56)
[2018-05-04] MEDS: DULoxetine DR CAP* 30 MG CAP.DR PO SCH (08:56)
--- NOTE | 2018-05-09 23:08 | DS ---
CC: Dr. Pepe Rodríguez * DISCHARGE SUMMARY: DATE OF ADMISSION: 04/29/18 DATE OF DISCHARGE: 05/04/18 DISCHARGE DIAGNOSES: 1. Right total knee replacement. 2. Cirrhosis of liver. 3. Chronic obstructive pulmonary disease. 4. History of alcohol abuse. 5. Anxiety. 6. Depression. HISTORY OF ILLNESS AND HOSPITAL COURSE: For complete history of the events leading up to her rehab stay, please see the history and physical dictated by me on 04/29/18. The patient's ammonia level was checked while on the rehab unit. It was 63 on and 75 on 05/04/18. The patient was treated with lactulose for her high ammonia level. The patient did tell me she had been treated with this before as an outpatient, but she did not like to take the stuff. The patient originally was on Coumadin for DVT prophylaxis, however, given her liver disease, it was felt that she would do better with Lovenox. Her Coumadin was stopped and she was started on subcutaneous Lovenox. The patient otherwise was medically stable. She was seen by both Physical therapy and Occupational Therapy and made good gains with both disciplines. With physical therapy at the time of admission, the patient required contact guard to transfer, contact guard to ambulate. With occupational therapy at the time of admission, the patient required supervision for lower body dressing, independent upper body dressing, supervision for bathing, supervision for toilet transfers and supervision for toileting. By the time of discharge, the patient was independent in transfers, independent ambulating 300 feet, independent going up and down a flight of stairs, independent with bathing and toileting, and dressing. The patient was discharged home on 05/04/18. DISCHARGE DIET: Regular. DISCHARGE MEDICATIONS: Included: 1. Albuterol HFA inhaler 2 puffs every 6 hours as needed. 2. Klonopin 0.5 mg orally at bedtime. 3. Cymbalta 30 mg daily. 4. Lovenox 40 mg subcutaneously every 24 hours. 5. Stiolto Respimat 2 puffs every day. 6. Tramadol 50 mg every 6 hours as needed. SERVICES AFTER DISCHARGE: Through [facility]. She will have home nursing, home physical therapy, and a home health aide. Follow up with Dr. Johnie Merchant in 1 week as well as with Dr. Pepe Rodríguez, her primary care doctor. TIME SPENT: Time for this discharge was approximately 50 minutes, greater than half of which was spent with the patient discussing post-rehab therapies, as well as medications and services. [id number]/[facility] #: [id number] THAIS
== END 2018-05-04 12:00 | disposition home health service (06) | DRG 560 ==
LOC: PMRU 16:45
PROVIDERS: ADMIT Physical Medicine & Rehabilitation; ATTEND Physical Medicine & Rehabilitation
PROC: F07Z5ZZ Bed Mobility Treatment (ICD-10-PCS; principal; 2018-04-29)
PROC: F07Z9ZZ Gait Training/Functional Ambulation Treatment (ICD-10-PCS; 2018-04-29)
PROC: F07Z8ZZ Transfer Training Treatment (ICD-10-PCS; 2018-04-29)
PROC: F08Z0ZZ Bathing/Showering Techniques Treatment (ICD-10-PCS; 2018-04-29)
PROC: F08Z1ZZ Dressing Techniques Treatment (ICD-10-PCS; 2018-04-29)
PROC: F08Z3ZZ Feeding/Eating Treatment (ICD-10-PCS; 2018-04-29)
DX: Z47.1 Aftercare following joint replacement surgery (principal); K52.1 Toxic gastroenteritis and colitis; Z96.651 Presence of right artificial knee joint; J44.9 Chronic obstructive pulmonary disease, unspecified; K70.30 Alcoholic cirrhosis of liver without ascites; F41.9 Anxiety disorder, unspecified; F32.9 Major depressive disorder, single episode, unspecified; F10.21 Alcohol dependence, in remission; F17.210 Nicotine dependence, cigarettes, uncomplicated; Z66 Do not resuscitate; Z79.51 Long term (current) use of inhaled steroids; T47.3X5A Adverse effect of saline and osmotic laxatives, initial encounter; Y92.230 Patient room in hospital as the place of occurrence of the external cause; Z79.899 Other long term (current) drug therapy; Z88.6 Allergy status to analgesic agent; Z88.8 Allergy status to other drugs, medicaments and biological substances
CPT/HCPCS: 36415; 80053; 82140; 85025; 85610; A9270-GY; J1650